=== PATIENT | male | born 1980 | race Caucasian/White ===

== ENCOUNTER 2018-04-04 22:14 | Emergency (ER) | payer MEDICAID ==
[~2018-04-04] VITALS: Ht 182.9 cm; Wt 97.5 kg
--- OUTSIDE RECORDS SUMMARY | 2018-04-04 22:56 | XMS REPORT ---
Author Author TOBI DELANEY [facility] Address [address] [place], [place] [address] Care Team Providers Care Saw Maker Name Role Phone TOBI DELANEY PCP TOBI DELANEY PreferredProvider Allergies and Adverse Reactions Name Reaction Notes NO KNOWN DRUG ALLERGIES Plan of Treatment Planned Activity Comments Planned Date Planned Time Plan/Goal CMP 06/19/2016 12:00 AM Holter monitoring 01/17/2015 12:00 AM Medications Active Name Start Date Estimated Completion Date SIG Comments Mylanta [place] 400-135 mg/5 mL oral suspension 07/28/2012 take 10 milliliters by oral route every 4-6 hours as needed for stomach not to exceed 90 mL in 24hrs Acetaminophen Pain Relief 500 mg oral tablet 07/28/2012 take 2 tablets (1, 000 mg) by oral route every 4-6 hours as needed not to exceed 8 tablets per 24hrs carbamazepine 100 mg oral tablet,chewable chew 3 tablet (300 mg) by oral route BID Colace 100 mg oral capsule take 2 capsules (200 mg) by oral route once daily at bedtime as needed Lamictal 100 mg oral tablet take 1 tablet (100 mg) by oral route 2 times per day Zyprexa 10 mg oral tablet take 1 tablet (10 mg) by oral route once daily Zoloft 100 mg oral tablet take 1.5 tablets (150 mg) by oral route once daily clonidine HCl 0.1 mg oral tablet 01/11/2015 take 1 tablet (0.1 mg) by oral route 3 times per day Lamisil 250 mg oral tablet 01/25/2017 take 1 tablet by oral route daily Penlac 8 % topical solution 02/12/2017 apply to the affected area(s) by topical route once daily preferably at bedtime or 8 hours before washing Debrox 6.5 % otic drops 04/17/2017 Instill 5 drops into right ear twice daily for 1 week per month ( - ) econazole 1 % topical cream 09/02/2017 apply to the affected and surrounding areas of skin by topical route 2 times per day lisinopril-hydrochlorothiazide 10-12.5 mg oral tablet 10/08/2017 take 1 tablet by oral route once daily ranitidine HCl 150 mg oral tablet 10/08/2017 take 1 tablet (150 mg) by oral route 2 times per day Therems oral tablet 10/08/2017 take 1 tablet by oral route daily loratadine 10 mg oral tablet 10/08/2017 take 1 tablet (10 mg) by oral route once daily folic acid 1 mg oral tablet 10/08/2017 take 1 tablet (1 mg) by oral route once daily DOK 100 mg oral capsule 10/08/2017 take 2 capsules (200 mg) by oral route once daily at bedtime as needed amoxicillin 500 mg oral capsule 10/14/2017 Take 4 capsules 1 hour before dental procedures or minor surgery for prophylaxis. Medrol (Miah) 4 mg oral tablets,dose pack 12/20/2017 12/25/2017 take as directed for 5 days Zithromax Z-Miah 250 mg oral tablet 12/20/2017 12/25/2017 take 2 tablets (500 mg) by oral route once daily for 1 day then 1 tablet (250 mg) by oral route once daily for 4 days Name Start Date Expiration Date SIG Comments Medrol (Miah) 4 mg oral tablets,dose pack 01/11/2010 take as directed Keflex 500 mg oral capsule 04/04/2010 take 1 capsule (500 mg) by oral route every 6 hours Phenergan-Codeine 6.25-10 mg/5 mL oral syrup 11/27/2010 take 5 milliliters by oral route 4 times a day Zithromax Z-Miah 250 mg oral tablet 11/27/2010 12/02/2010 take 2 tablets (500 mg) by oral route once daily for 1 day then 1 tablet (250 mg) by oral route once daily for 4 days All Day Relief 220 mg oral tablet 12/07/2010 01/06/2011 TAKE 1 TABLET BY MOUTH TWO TIMES A DAY NEEDED Lice Treatment (permethrin) 1 % topical liquid 11/06/2012 apply a sufficient amount of shampoo by topical route once allow to remain on hair for 10 minutes before rinsing off with water Zithromax Z-Miah 250 mg oral tablet 11/10/2015 2015 take 2 tablets ( 500 mg) by oral route once daily for 1 day then 1 tablet (250 mg) by oral route once daily for 4 days Medrol (Miah) 4 mg oral tablets,dose pack 11/10/2015 take as directed Diflucan 150 mg oral tablet 02/09/2016 02/10/2016 take 1 tablet by oral route once For three days Bactrim DS 800-160 mg oral tablet 05/17/2017 05/24/2017 take 1 tablet by oral route 2 times a day for 7 days Discontinued Name Start Date Discontinued Date SIG Comments Zantac 150 mg oral tablet 06/17/2012 06/24/2016 take 1 tablet (150 mg) by oral route 2 times per day Problem List Description Status Onset Mental retardation Active ADHD Active Bipolar disorder, unspecified Active Constipation Active Gastritis Active Impulse control disorder, unspecified Active Mental Retardation Active Mitral Valve Disorders Active Obsessive compulsive disorder Active Gastroesophageal Reflux Active 04/28/2014 Behavior disturbance Active 01/15/2015 Toenail fungus Active 06/24/2016 Vital Signs Date Time BP-Sys(mm[Hg] BP-Jazz(mm[Hg]) HR(bpm) RR(rpm) Temp WT HT HC BMI BSA BMI Percentile O2 Sat(%) 12/20/2017 11:11:00 AM 128 mmHg 80 mmHg 80 bpm 18 rpm 98.2 F 209 lbs 98 % 11/07/2017 11:22:00 AM 110 mmHg 80 mmHg 86 bpm 16 rpm 97.6 F 208 lbs 69 in 30.7159 kg/m 2.1432 m 98 % 07/09/2017 9:56:00 AM 122 mmHg 78 mmHg 88 bpm 18 rpm 97 F 205 lbs 70 in 29.41 kg/m2 2.14 m2 97 % 05/31/2017 9:06:00 AM 118 mmHg 78 mmHg 88 bpm 16 rpm 98.2 F 208 lbs 70 in 29.8446 kg/m 2.1586 m 98 % 05/17/2017 9:59:00 AM 128 mmHg 74 mmHg 76 bpm 16 rpm 98.2 F 206 lbs 98 % 01/24/2017 4:19:00 PM 122 mmHg 74 mmHg 86 bpm 18 rpm 98 F 215 lbs 70 in 30.849 kg/m 2.1947 m 96 % 11/01/2016 10:27:00 AM 112 mmHg 78 mmHg 94 bpm 16 rpm 99 F 218 lbs 70 in 31.28 kg/m2 2.21 m2 96 % 06/19/2016 10:16:00 AM 128 mmHg 82 mmHg 86 bpm 18 rpm 98.5 F 215 lbs 71 in 29.9861 kg/m 2.2103 m 96 % 01/10/2016 10:55:00 AM 115 mmHg 60 mmHg 68 bpm 16 rpm 98.9 F 220 lbs 70 in 31.57 kg/m2 2.22 m2 98 % 11/22/2015 10:23:00 AM 110 mmHg 62 mmHg 92 bpm 18 rpm 98.3 F 220 lbs 72 in 29.8371 kg/m 2.2515 m 98 % 04/04/2015 12:18:00 PM 120 mmHg 80 mmHg 96 bpm 18 rpm 97.8 F 222 lbs 69 in 32.78 kg/m2 2.21 m2 98 % 01/14/2015 7:58:00 AM 102 mmHg 78 mmHg 86 bpm 18 rpm 97.4 F 225.187 lbs 70 in 32.3107 kg/m 2.2461 m 98 % 07/07/2014 11:21:00 AM 136 mmHg 80 mmHg 90 bpm 20 rpm 97.9 F 213 lbs 70 in 30.56 kg/m2 2.18 m2 97 % 06/15/2014 6:13:00 AM 130 mmHg 84 mmHg 84 bpm 18 rpm 98 F 208.312 lbs 70 in 29.8894 kg/m 2.1603 m 98 % 04/27/2014 10:37:00 AM 134 mmHg 64 mmHg 88 bpm 22 rpm 97.8 F 211.5 lbs 70 in 30.35 kg/m2 2.18 m2 97 % 03/12/2013 2:30:00 PM 120 mmHg 60 mmHg 74 bpm 16 rpm 97.6 F 210 lbs 70 in 30.1316 kg/m 2.169 m 98 % 07/21/2012 1:24:00 PM 130 mmHg 70 mmHg 76 bpm 209 lbs 70 in 29.99 kg/m2 2.16 m2 06/17/2012 10:26:00 AM 130 mmHg 80 mmHg 80 bpm 205 lbs 70 in 29.4141 kg/m 2.143 m 08/29/2011 9:26:00 AM 114 mmHg 80 mmHg 85 bpm 208 lbs 70 in 29.84 kg/m2 2.16 m2 97 % 11/23/2010 11:36:00 AM 124 mmHg 82 mmHg 80 bpm 217 lbs 04/11/2010 9:55:00 AM 120 mmHg 76 mmHg 76 bpm 200 lbs 04/04/2010 9:38:00 AM 80 bpm 209 lbs 03/15/2010 9:51:00 AM 122 mmHg 80 mmHg 76 bpm 200 lbs 02/15/2010 2:48:00 PM 114 mmHg 80 mmHg 76 bpm 98.8 F 198 lbs 01/11/2010 11:24:00 AM 110 mmHg 80 mmHg 80 bpm 98.6 F 192 lbs 97 % Social History Name Description Comments Tobacco Never smoker denies alcohol use History of Procedures Date Ordered Description Order Status 08/29/2011 12:00 AM TB INTRADERMAL TEST Reviewed Results Summary Not available. History Of Immunizations Name Date Admin Mfg Name Mfg Code Trade Name Lot# Route Inj Vis Given Vis Pub CVX Influenza 10/05/2014 Not Entered NE Not Entered Not Entered Not Entered 12/02/2017 12/02/2017 141 History of Past Illness Name Date of Onset Comments Nasopharyngitis, Acute (Common Cold) Jan 11 2010 11:27AM Eustachian Tube Dysfunction Jan 11 2010 11:27AM Cough Jan 11 2010 11:27AM Bronchitis, Acute Jan 11 2010 11:27AM Pityriasis Rosea Feb 15 2010 2:49PM Pityriasis Rosea Mar 15 2010 9:52AM Ingrown Nail Apr 04 2010 9:39AM Skin And Subcutaneous Tissue Disorder Apr 04 2010 9:39AM Ingrown Nail Apr 11 2010 9:57AM Mental retardation Gastritis Bipolar disorder, unspecified Constipation Mitral Valve Disorders Mental Retardation ADHD Impulse control disorder, unspecified Obsessive compulsive disorder Gastroesophageal Reflux 04/28/2014 Behavior disturbance 01/15/2015 Nasopharyngitis, Acute (Common Cold) Nov 23 2010 11:36AM Cough Nov 23 2010 11:36AM Toenail fungus 06/24/2016 General Medical Exam, Adult Aug 29 2011 9:24AM Mental Retardation Aug 29 2011 9:24AM Gastroesophageal Reflux Jun 17 2012 10:29AM Warts (viral; digitate;filiform;infectious) Jun 17 2012 10:29AM Gastroesophageal Reflux Jul 21 2012 1:27PM Warts (viral; digitate;filiform;infectious) Jul 21 2012 1:27PM Mental Retardation Mar 27 2013 12:43PM Bipolar disorder, unspecified Mar 27 2013 12:43PM Impulse control disorder, unspecified Mar 27 2013 12:43PM Obsessive compulsive disorder Mar 27 2013 12:43PM Gastroesophageal Reflux Apr 27 2014 10:37AM Mental Retardation Apr 27 2014 10:37AM ADHD Apr 27 2014 10:37AM Bipolar disorder, unspecified Apr 27 2014 10:37AM Impulse control disorder, unspecified Apr 27 2014 10:37AM Obsessive compulsive disorder Apr 27 2014 10:37AM Constipation Apr 27 2014 10:37AM Mitral Valve Disorders Apr 27 2014 10:37AM Shoulder contusion, right, sequela Jun 14 2014 2:03PM Pain in shoulder region, right Jul 07 2014 11:20AM Behavior disturbance Jan 14 2015 7:59AM Mental retardation Jan 14 2015 7:59AM Bipolar disorder, unspecified Jan 14 2015 7:59AM Impulse control disorder, unspecified Jan 14 2015 7:59AM Obsessive compulsive disorder Jan 14 2015 7:59AM Dizziness Jan 17 2015 9:20AM Behavior disturbance Apr 04 2015 12:19PM Gastroesophageal Reflux Apr 04 2015 12:19PM Mental retardation Apr 04 2015 12:19PM ADHD Apr 04 2015 12:19PM Bipolar disorder, unspecified Apr 04 2015 12:19PM Impulse control disorder, unspecified Apr 04 2015 12:19PM Obsessive compulsive disorder Apr 04 2015 12:19PM Olecranon bursitis, left Nov 22 2015 10:23AM Mild Acute Sprain/Strain Improving Jan 10 2016 10:56AM Acute left ankle pain Jan 10 2016 10:56AM Long-term use of high-risk medication Jun 19 2016 3:54PM Gastroesophageal reflux disease without esophagitis Jun 19 2016 10:17AM Behavior disturbance Jun 19 2016 10:17AM Mental retardation Jun 19 2016 10:17AM Impulse control disorder, unspecified Jun 19 2016 10:17AM Obsessive compulsive disorder Jun 19 2016 10:17AM Bipolar affective disorder Jun 19 2016 10:17AM Toenail fungus Jun 19 2016 10:17AM Cough Nov 01 2016 10:28AM Mild Acute Post-nasal drainage Nov 01 2016 10:28AM Upper respiratory tract infection, unspecified type Nov 01 2016 10:28AM Nasal congestion Nov 01 2016 10:28AM Tinea cruris Jan 24 2017 4:19PM Cellulitis of finger of right hand May 17 2017 9:59AM Acute midline low back pain without sciatica May 31 2017 9:08AM Muscle spasm of back May 31 2017 9:08AM Encounter for routine adult health examination without abnormal findings Jul 09 2017 10:09AM Cough Nov 07 2017 11:22AM Acute pharyngitis, unspecified etiology Nov 07 2017 11:22AM Purulent postnasal drainage Nov 07 2017 11:22AM Sinus pressure Nov 07 2017 11:22AM Cough Dec 20 2017 11:11AM Purulent postnasal drainage Dec 20 2017 11:11AM Chest congestion Dec 20 2017 11:11AM Upper respiratory tract infection, unspecified type Dec 20 2017 11:11AM Payers Insurance Name Company Name Plan Name Plan Number Policy Number Policy Group Number Start Date [facility] [id number] N/A [place] Medical Assistance [facility] Medical Assistance Pro [id number] N/A History of Encounters Visit Date Visit Type Provider 12/20/2017 Office visit TOBI HENDRICKS 11/07/2017 Office visit TOBI HENDRICKS 07/09/2017 Office visit TOBI HENDRICKS 05/17/2017 Office visit TOBI HENDRICKS 05/07/2017 Office visit TOBI HENDRICKS 01/24/2017 Office visit TOBI HENDRICKS 11/01/2016 Office visit TOBI HENDRICKS 06/19/2016 Office visit TOBI HENDRICKS 01/10/2016 Office visit TOBI HENDRICKS 11/22/2015 Office visit TOBI HENDRICKS 04/04/2015 Office visit TOBI HENDRICKS 01/13/2015 Office visit TOBI HENDRICKS 07/07/2014 Office visit TOBI HENDRICKS 06/14/2014 Office visit TOBI HENDRICKS 04/27/2014 Office visit TOBI HENDRICKS 03/12/2013 Office visit TOBI HENDRICKS 07/21/2012 Office visit TOBI HENDRICKS 06/17/2012 Office visit TOBI HENDRICKS 08/29/2011 Office visit Tobi Delaney PA-C 11/23/2010 Office visit Tobi Delaney PA-C 04/11/2010 Office visit Tobi Delaney PA-C 04/04/2010 Office visit Tobi Delaney PA-C 03/15/2010 Office visit Tobi Delaney PA-C 02/15/2010 Office visit Tobi Delaney PA-C 01/11/2010 Office visit Tobi Delaney PA-C 10/04/2009 Office visit Tobi Delaney PA-C 09/01/2009 Office visit Tobi Delaney PA-C
--- OUTSIDE RECORDS SUMMARY | 2018-04-04 22:56 | XMS REPORT ---
Author TOBI Davis [facility] Address [address] [place], [place] [address] Care Team Providers Care Environment Artist Name Role Phone TOBI GRECO PCP Unavailable TOBI GRECO PreferredProvider Unavailable Allergies and Adverse Reactions Name Reaction Notes NO KNOWN DRUG ALLERGIES Plan of Treatment Planned Activity Comments Planned Date Planned Time Plan/Goal CMP 06/19/2016 12:00 AM Holter monitoring 01/17/2015 12:00 AM Medications Active Name Start Date Estimated Completion Date SIG Comments Mylanta [place] 400-135 mg/5 mL oral suspension 07/28/2012 take [...] by oral route 3 times per day DOK 100 mg oral capsule 10/19/2016 take 2 capsules (200 mg) by oral route once daily at bedtime as needed folic acid 1 mg oral tablet 10/19/2016 take 1 tablet (1 mg) by oral route once daily loratadine 10 mg oral tablet 10/19/2016 take 1 tablet (10 mg) by oral route once daily Therems oral tablet 10/19/2016 take 1 tablet by oral route daily lisinopril-hydrochlorothiazide 10-12.5 mg oral tablet 10/19/2016 take 1 tablet by oral route once daily ranitidine HCl 150 mg oral tablet 10/24/2016 take 1 tablet (150 mg) by oral route 2 times per day econazole 1 % topical cream 12/19/2016 apply to the affected and surrounding areas of skin by topical route 2 times per day Lamisil 250 mg oral tablet 01/25/2017 take 1 tablet by oral route daily Penlac 8 % topical solution 02/12/2017 apply to the affected area(s) by topical route once daily preferably at bedtime or 8 hours before washing Debrox 6.5 % otic drops 04/17/2017 Instill 5 drops into right ear twice daily for 1 week per month ( - ) Bactrim DS 800-160 mg oral tablet 05/17/2017 05/24/2017 take 1 tablet by oral route 2 times a day for 7 days Name Start Date Expiration Date SIG [...] by oral route once For three days Zithromax Z-Imah 250 mg oral tablet 11/01/2016 11/06/2016 take 2 tablets (500 mg) by oral route once daily for 1 day then 1 tablet (250 mg) by oral route once daily for 4 days Medrol (Miah) 4 mg oral tablets,dose pack 11/01/2016 11/06/2016 take as directed for 5 days Discontinued Name Start Date Discontinued Date [...] HC BMI BSA BMI Percentile O2 Sat(%) 05/17/2017 9:59:00 AM 128 mmHg 74 mmHg [...] AM TB INTRADERMAL TEST Reviewed Results Summary Date and Description Results 08/16/2010 6:05 AM FOLATE 12.0 ng/mL History Of Immunizations Name Date Admin Mfg Name Mfg Code Trade Name Lot# Route Inj Vis Given Vis Pub CVX Influenza 10/05/2014 Not Entered NE Not Entered Not Entered Not Entered 12/02/2016 12/02/2016 141 History of Past Illness Name Date [...] of right hand May 17 2017 9:59AM Payers Insurance Name Company Name Plan Name Plan Number Policy Number Policy Group Number Start Date [facility] [id number] N/A [place] Medical Assistance Program [place] [facility] [place] Prog [id number] N/A History of Encounters Visit Date Visit Type Provider 05/17/2017 Office visit TOBI HENDRICKS 05/07/2017 Office visit TOBI HENDRICKS 01/24/2017 Office visit TOBI HENDRICKS 11/01/2016 Office visit TOBI HENDRICKS 06/19/2016 Office visit TOBI HENDRICKS 01/10/2016 Office visit TOBI HENDRICKS 11/22/2015 Office visit TOBI HENDRICKS 04/04/2015 Office visit TOBI HENDRICKS 01/13/2015 Office visit TOBI HENDRICKS 07/07/2014 Office visit TOBI GRECO PA 06/14/2014 Office visit TOBI GRECO PA 04/27/2014 Office visit TOBI GRECO PA 03/12/2013 Office visit TOBI GRECO PA 07/21/2012 Office visit TOBI GRECO PA 06/17/2012 Office visit TOBI GRECO PA 08/29/2011 Office visit Tobi Greco PA-C 11/23/2010 Office visit Tobi Greco PA-C 04/11/2010 Office visit Tobi Greco PA-C 04/04/2010 Office visit Tobi Greco PA-C 03/15/2010 Office visit Tobi Greco PA-C 02/15/2010 Office visit Tobi Greco PA-C 01/11/2010 Office visit Tobi Greco PA-C 10/04/2009 Office visit Tobi Greco PA-C 09/01/2009 Office visit Tobi Greco PA-C
--- OUTSIDE RECORDS SUMMARY | 2018-04-04 22:57 | XMS REPORT ---
Author TOBI Davis [facility] Address [address] [place], [place] [id number] Care Team Providers Care Mobility Manager Name Role Phone TOBI GRECO PCP Unavailable Allergies and Adverse Reactions Name Reaction Notes NO KNOWN DRUG ALLERGIES Plan of Treatment Planned Activity Comments Planned Date Planned Time Plan/Goal ECG MONIT/REPRT UP TO 48 HRS 01/17/2015 12:00 AM Medications Active Name Start Date Estimated Completion Date SIG Comments Zantac 150 mg oral tablet 06/17/2012 take 1 tablet (150 mg) by oral route 2 times per day Mylanta [place] 400-135 mg/5 mL oral suspension 07/28/2012 take 10 milliliters by oral route every 4-6 hours as needed for stomach not to exceed 90 mL in 24hrs Acetaminophen Pain Relief 500 mg oral tablet 07/28/2012 take 2 tablets (1, 000 mg) by oral route every 4-6 hours as needed not to exceed 8 tablets per 24hrs Lice Treatment (permethrin) 1 % topical liquid 11/06/2012 apply a sufficient amount of shampoo by topical route once allow to remain on hair for 10 minutes before rinsing off with water carbamazepine 100 mg oral tablet,chewable chew 3 tablet (300 mg) by oral route BID Colace Oral Colace 100 mg oral capsule take 2 capsules (200 mg) by oral route once daily at bedtime as needed folic acid 1 mg oral tablet take 1 tablet (1 mg) by oral route once daily Lamictal 100 mg oral tablet take 1 tablet (100 mg) by oral route 2 times per day loratadine 10 mg oral tablet take 1 tablet (10 mg) by oral route once daily Zyprexa 10 mg oral tablet take 1 tablet (10 mg) by oral route once daily Zoloft 100 mg oral tablet take 1.5 tablets (150 mg) by oral route once daily clonidine HCl 0.1 mg oral tablet 01/11/2015 take 1 tablet (0.1 mg) by oral route 3 times per day Medrol (Miah) 4 mg oral tablets,dose pack 11/10/2015 take as directed Name Start Date Expiration Date SIG Comments [...] BY MOUTH TWO TIMES A DAY NEEDED Zithromax Z-Miah 250 mg oral tablet 11/10/2015 2015 take 2 tablets ( 500 mg) by oral route once daily for 1 day then 1 tablet (250 mg) by oral route once daily for 4 days Problem List Description Status Onset Mental retardation Active ADHD Active Bipolar disorder, unspecified Active Constipation Active Gastritis Active Impulse control disorder, unspecified Active Mental Retardation Active Mitral Valve Disorders Active Obsessive compulsive disorder Active Gastroesophageal Reflux Active 04/28/2014 Behavior disturbance Active 01/15/2015 Vital Signs Date Time BP-Sys(mm[Hg] BP-Jazz(mm[Hg]) HR(bpm) RR(rpm) Temp WT HT HC BMI BSA BMI Percentile O2 Sat(%) 01/10/2016 10:55:00 AM 115 mmHg 60 mmHg [...] AM TB INTRADERMAL TEST Reviewed Results Summary Data and Description Results 08/16/2010 6:05 AM FOLATE 12.0 ng/mL History Of Immunizations Name Date Admin Mfg Name Mfg Code Trade Name Lot# Route Inj Vis Given Vis Pub CVX Influenza 10/05/2014 Not Entered NE Not Entered Not Entered Not Entered 12/02/2015 12/02/2015 141 History of Past Illness Name Date [...] 2010 11:36AM Cough Nov 23 2010 11:36AM General Medical Exam, Adult Aug 29 2011 [...] left ankle pain Jan 10 2016 10:56AM Payers Insurance Name Company Name Plan Name Plan Number Policy Number Policy Group Number Start Date [facility] [id number] N/A [place] Medical Assistance [facility] Medical Assistance Pro [id number] N/A History of Encounters Visit Date Visit Type Provider 01/10/2016 Office visit TOBI HENDRICKS 11/22/2015 Office visit TOBI HENDRICKS 04/04/2015 Office visit TOBI HENDRICKS 01/13/2015 Office visit TOBI HENDRICKS 07/07/2014 Office visit TOBI HENDRICKS 06/14/2014 Office visit TOBI HENDRICKS 04/27/2014 Office visit TOBI HENDRICKS 03/12/2013 Office visit TOBI HENDRICKS 07/21/2012 Office visit TOBI HENDRICKS 06/17/2012 Office visit TOBI HENDRICKS 08/29/2011 Office visit Tobi Greco PA-C 11/23/2010 Office visit Tobi HENDRICKS-C 04/11/2010 Office visit Tobi HENDRICKS-C 04/04/2010 Office visit Tobi HENDRICKS-C 03/15/2010 Office visit Tobi HENDRICKS-C 02/15/2010 Office visit Tobi HENDRICKS-C 01/11/2010 Office visit Tobi HENDRICKS-C 10/04/2009 Office visit Tobi HENDRICKS-C 09/01/2009 Office visit Tobi Greco PA-C
--- OUTSIDE RECORDS SUMMARY | 2018-04-04 22:57 | XMS REPORT ---
Author Author TOBI DELANEY [facility] Address [address] [place], [place] [address] Care Team Providers Care Business Integration Analyst Name Role Phone TOBI DELANEY PCP Unavailable Allergies and Adverse Reactions Name Reaction Notes NO KNOWN DRUG ALLERGIES Plan of Treatment Planned Activity Comments Planned Date Planned Time Plan/Goal CMP 06/19/2016 12:00 AM Holter monitoring 01/17/2015 12:00 AM Medications Active Name Start Date Estimated Completion Date SIG Comments Mylanta [place] 400-135 mg/5 mL oral suspension 07/28/2012 take [...] take 1 tablet by oral route daily Name Start Date Expiration Date SIG Comments [...] oral route once For three days Zithromax Z-Miah 250 mg oral tablet 11/01/2016 11/06/2016 take [...] HC BMI BSA BMI Percentile O2 Sat(%) 01/24/2017 4:19:00 PM 122 mmHg 74 mmHg 86 bpm 18 rpm 98 F 215 lbs 70 in 30.85 kg/m2 2.19 m2 96 % 11/01/2016 10:27:00 AM 112 mmHg 78 mmHg 94 bpm 16 rpm 99 F 218 lbs 70 in 31.2794 kg/m 2.2099 m 96 % 06/19/2016 10:16:00 AM 128 mmHg 82 mmHg 86 bpm 18 rpm 98.5 F 215 lbs 71 in 29.99 kg/m2 2.21 m2 96 % 01/10/2016 10:55:00 AM 115 mmHg 60 mmHg 68 bpm 16 rpm 98.9 F 220 lbs 70 in 31.5664 kg/m 2.22 m 98 % 11/22/2015 10:23:00 AM 110 mmHg 62 mmHg 92 bpm 18 rpm 98.3 F 220 lbs 72 in 29.84 kg/m2 2.25 m2 98 % 04/04/2015 12:18:00 PM 120 mmHg 80 mmHg 96 bpm 18 rpm 97.8 F 222 lbs 69 in 32.7833 kg/m 2.2141 m 98 % 01/14/2015 7:58:00 AM 102 mmHg 78 mmHg 86 bpm 18 rpm 97.4 F 225.187 lbs 70 in 32.31 kg/m2 2.25 m2 98 % 07/07/2014 11:21:00 AM 136 mmHg 80 mmHg 90 bpm 20 rpm 97.9 F 213 lbs 70 in 30.562 kg/m 2.1844 m 97 % 06/15/2014 6:13:00 AM 130 mmHg 84 mmHg 84 bpm 18 rpm 98 F 208.312 lbs 70 in 29.89 kg/m2 2.16 m2 98 % 04/27/2014 10:37:00 AM 134 mmHg 64 mmHg 88 bpm 22 rpm 97.8 F 211.5 lbs 70 in 30.3468 kg/m 2.1767 m 97 % 03/12/2013 2:30:00 PM 120 mmHg 60 mmHg 74 bpm 16 rpm 97.6 F 210 lbs 70 in 30.13 kg/m2 2.17 m2 98 % 07/21/2012 1:24:00 PM 130 mmHg 70 mmHg 76 bpm 209 lbs 70 in 29.9881 kg/m 2.1638 m 06/17/2012 10:26:00 AM 130 mmHg 80 mmHg 80 bpm 205 lbs 70 in 29.41 kg/m2 2.14 m2 08/29/2011 9:26:00 AM 114 mmHg 80 mmHg 85 bpm 208 lbs 70 in 29.8446 kg/m 2.1586 m 97 % 11/23/2010 11:36:00 AM 124 mmHg [...] 10:28AM Tinea cruris Jan 24 2017 4:19PM Payers Insurance Name Company Name Plan Name Plan Number Policy Number Policy Group Number Start Date [facility] [id number] N/A [place] Medical Assistance [facility] Medical Assistance Pro [id number] N/A History of Encounters Visit Date Visit Type Provider 01/24/2017 Office visit TOBI HENDRICKS 11/01/2016 Office visit TOBI HENDRICKS 06/19/2016 Office visit TOBI HENDRICKS 01/10/2016 Office visit TOBI HENDRICKS 11/22/2015 Office visit TOBI HENDRICKS 04/04/2015 Office visit TOBI HENDRICKS 01/13/2015 Office visit TOBI HENDRICKS 07/07/2014 Office visit TBOI HENDRICKS 06/14/2014 Office visit TOBI HENDRICKS 04/27/2014 Office visit TOBI HENDRICKS 03/12/2013 Office visit TOBI HENDRICKS 07/21/2012 Office visit TOBI HENDRICKS 06/17/2012 Office visit TOBI HENDRICKS 08/29/2011 Office visit Tobi HENDRICKS-C 11/23/2010 Office visit Tobi HENDRICKS-C 04/11/2010 Office visit Tobi HENDRICKS-C 04/04/2010 Office visit Tobi HENDRICKS-C 03/15/2010 Office visit Tobi HENDRICKS-C 02/15/2010 Office visit Toib HENDRICKS-C 01/11/2010 Office visit Tobi HENDRICKS-C 10/04/2009 Office visit Tobi Delaney PA-C 09/01/2009 Office visit Tobi Delaney PA-C
--- OUTSIDE RECORDS SUMMARY | 2018-04-04 22:57 | XMS REPORT ---
Author TOBI Davis [facility] Address [address] [place], [place] [id number] Care Team Providers Care Fiscal Agent Name Role Phone TOBI GRECO PCP Unavailable Allergies and Adverse Reactions Name Reaction Notes NO KNOWN DRUG ALLERGIES Plan of Treatment Planned Activity Comments Planned Date Planned Time Plan/Goal COMPREHEN METABOLIC PANEL 06/19/2016 12:00 AM ECG MONIT/REPRT UP TO 48 HRS 01/17/2015 12:00 AM Medications Active Name Start Date Estimated Completion Date SIG Comments Zantac 150 mg oral tablet 06/17/2012 take 1 tablet (150 mg) by oral route 2 times per day Mylanta [place] 400-135 mg/5 mL oral suspension 07/28/2012 take [...] oral tablets,dose pack 11/10/2015 take as directed econazole 1 % topical cream 05/03/2016 apply to the affected and surrounding areas of skin by topical route 2 times per day Lamisil 250 mg oral tablet 06/19/2016 Take one tablet (250 mg) BID x 1 week. Stop Medication for 3 weeks and then repeat. Name Start Date Expiration Date SIG Comments [...] oral route once daily for 4 days Diflucan 150 mg oral tablet 02/09/2016 02/10/2016 take 1 tablet by oral route once For three days Problem List Description Status Onset Mental retardation Active ADHD Active Bipolar disorder, unspecified Active Constipation Active Gastritis Active Impulse control disorder, unspecified Active Mental Retardation Active Mitral Valve Disorders Active Obsessive compulsive disorder Active Gastroesophageal Reflux Active 04/28/2014 Behavior disturbance Active 01/15/2015 Vital Signs Date Time BP-Sys(mm[Hg] BP-Jazz(mm[Hg]) HR(bpm) RR(rpm) Temp WT HT HC BMI BSA BMI Percentile O2 Sat(%) 06/19/2016 10:16:00 AM 128 mmHg 82 mmHg [...] of high-risk medication Jun 19 2016 3:54PM Payers Insurance Name Company Name Plan Name Plan Number Policy Number Policy Group Number Start Date [facility] [id number] N/A [place] Medical Assistance [place] Medical Assistance Pro [id number] N/A History of Encounters Visit Date Visit Type Provider 06/19/2016 Office visit TOBI HENDRICKS 01/10/2016 Office [...] Tobi Greco PA-C 04/11/2010 Office visit Tobi GUERRAC 04/04/2010 Office visit Tobi HENDRICKS-C 03/15/2010 Office visit Tobi GUERRAC 02/15/2010 Office visit Tobi GUERRAC 01/11/2010 Office visit Tobi HENDRICKS-C 10/04/2009 Office visit Tobi HENDRICKS-C 09/01/2009 Office visit Tobi Greco PA-C
--- OUTSIDE RECORDS SUMMARY | 2018-04-04 22:58 | XMS REPORT ---
Author Author [facility] Organization [facility] Address [address] [place], [place] [phone] Care Team Providers Care Commercial Banker Name Role Phone PCP Unavailable Allergies and Adverse Reactions Name Reaction Notes NO KNOWN DRUG ALLERGIES Plan of Treatment Not available. Medications Active Name Start Date Estimated Completion Date SIG Comments Zantac Oral Tablet 150 mg 06/17/2012 take 1 tablet (150 mg) by oral route 2 times per day Mylanta [place] Oral Suspension 400-135 mg/5 mL 07/28/2012 take 10 milliliters by oral route every 4-6 hours as needed for stomach not to exceed 90 mL in 24hrs Acetaminophen Pain Relief Oral tablet 500 mg 07/28/2012 take 2 tablets (1, 000 mg) by oral route every 4-6 hours as needed not to exceed 8 tablets per 24hrs Permethrin Lice Treatment Topical Liquid 1 % 11/06/2012 apply a sufficient amount of shampoo by topical route once allow to remain on hair for 10 minutes before rinsing off with water carbamazepine Oral tablet, chewable 100 mg chew 3 tablet (300 mg) by oral route BID Colace Oral Colace Oral capsule 100 mg take 2 capsules (200 mg) by oral route once daily at bedtime as needed folic acid Oral tablet 1 mg take 1 tablet (1 mg) by oral route once daily Lamictal Oral tablet 100 mg take 1 tablet (100 mg) by oral route 2 times per day loratadine Oral tablet 10 mg take 1 tablet (10 mg) by oral route once daily Zyprexa Oral tablet 10 mg take 1 tablet (10 mg) by oral route once daily Zoloft Oral tablet 100 mg take 1.5 tablets (150 mg) by oral route once daily Medrol (Miah) oral tablets,dose pack 4 mg 07/22/2014 take as directed clonidine HCl oral tablet 0.1 mg 01/11/2015 take 1 tablet (0.1 mg) by oral route 3 times per day Name Start Date Expiration Date SIG Comments Medrol (Miah) Oral Tablets, Dose Pack 4 mg 01/11/2010 take as directed Keflex Oral Capsule 500 mg 04/04/2010 take 1 capsule (500 mg) by oral route every 6 hours Phenergan-Codeine Oral Syrup 6.25-10 mg/5 mL 11/27/2010 take 5 milliliters by oral route 4 times a day Zithromax Z-Miah Oral Tablet 250 mg 11/27/2010 12/02/2010 take 2 tablets (500 mg) by oral route once daily for 1 day then 1 tablet (250 mg) by oral route once daily for 4 days All Day Relief Oral Tablet 220 mg 12/07/2010 01/06/2011 TAKE 1 TABLET BY MOUTH TWO TIMES A DAY NEEDED Zithromax Z-Miah oral tablet 250 mg 11/09/2014 11/14/2014 take 2 tablets (500 mg) by oral [...] HC BMI BSA BMI Percentile O2 Sat(%) 04/04/2015 12:18:00 PM 120 mmHg 80 mmHg [...] NE Not Entered Not Entered Not Entered 12/02/2014 12/02/2014 141 History of Past Illness Name Date [...] right Jul 07 2014 11:20AM Behavior disturbance b 2014 7:59AM Mental retardation Jan 14 2015 7:59AM Bipolar disorder, unspecified b 2014 7:59AM Impulse control disorder, unspecified b 2014 7:59AM Obsessive compulsive disorder Jan 14 2015 7:59AM Dizziness b 2014 9:20AM Behavior disturbance Apr 04 2015 12:19PM Gastroesophageal Reflux Apr 04 2015 12:19PM Mental retardation Apr 04 2015 12:19PM ADHD Apr 04 2015 12:19PM Bipolar disorder, unspecified Apr 04 2015 12:19PM Impulse control disorder, unspecified Apr 04 2015 12:19PM Obsessive compulsive disorder Apr 04 2015 12:19PM Payers Insurance Name Company Name Plan Name Plan Number Policy Number Policy Group Number Start Date [facility] [id number] N/A [place] Medical [place] Program [place] Pro [id number] N/A History of Encounters Visit Date Visit Type Provider 04/04/2015 Office visit TOBI GRECO PA 01/13/2015 Office visit TOBI GRECO PA 07/07/2014 Office visit TOBI GRECO PA 06/14/2014 [...]
--- OUTSIDE RECORDS SUMMARY | 2018-04-04 22:59 | XMS REPORT ---
Author TOBI Davis [facility] Address [address] [place], [place] [id number] Care Team Providers Care University Administrator Name Role Phone TOBI GRECO PCP Unavailable Allergies and Adverse Reactions Name Reaction Notes NO KNOWN DRUG ALLERGIES Plan of Treatment Planned Activity Comments Planned Date Planned Time Plan/Goal CMP 06/19/2016 12:00 AM Holter monitoring 01/17/2015 12:00 AM Medications Active Name Start Date Estimated Completion Date SIG Comments Mylanta [place] 400-135 mg/5 mL oral suspension 07/28/2012 take [...] by oral route 3 times per day econazole 1 % topical cream 05/03/2016 apply to the affected and surrounding areas of skin by topical route 2 times per day Lamisil 250 mg oral tablet 09/04/2016 take 1 tablet by oral route daily DOK 100 mg oral capsule 10/19/2016 take [...] by oral route 2 times per day Zithromax Z-Miah 250 mg oral tablet 11/01/2016 11/06/2016 take 2 tablets (500 mg) by oral route once daily for 1 day then 1 tablet (250 mg) by oral route once daily for 4 days Medrol (Miah) 4 mg oral tablets,dose pack 11/01/2016 11/06/2016 take as directed for 5 days Name Start Date Expiration Date SIG [...] by oral route once For three days Discontinued Name Start Date Discontinued Date [...] HC BMI BSA BMI Percentile O2 Sat(%) 11/01/2016 10:27:00 AM 112 mmHg 78 mmHg [...] 10:28AM Nasal congestion Nov 01 2016 10:28AM Payers Insurance Name Company Name Plan Name Plan Number Policy Number Policy Group Number Start Date [facility] [id number] N/A [place] Medical Assistance [facility] Medical Assistance Pro [id number] N/A History of Encounters Visit Date Visit Type Provider 11/01/2016 Office visit TOBI HENDRICKS 06/19/2016 Office [...] visit Tobi HENDRICKS-C 03/15/2010 Office visit Tobi Greco PA-C 02/15/2010 Office visit Tobi HENDRICKS-C 01/11/2010 Office visit Tobi Greco PA-C 10/04/2009 Office visit Tobi Greco PA-C 09/01/2009 Office visit Tobi HENDRICKS-C
--- OUTSIDE RECORDS SUMMARY | 2018-04-04 22:59 | XMS REPORT ---
Author TOBI Davis [facility] Address [address] [place], [place] [id number] Care Team Providers Care Garment Sewing Machine Operator Name Role Phone TOBI GRECO PCP Unavailable TOBI GRECO PreferredProvider Unavailable Allergies and Adverse Reactions Name Reaction Notes NO KNOWN DRUG ALLERGIES Plan of Treatment Planned Activity Comments Planned Date Planned Time Plan/Goal CMP 06/19/2016 12:00 AM Holter monitoring 01/17/2015 12:00 AM Medications Active Name Start Date Estimated Completion Date SIG Comments Mylanta [place] 400-135 mg/5 mL oral suspension 07/28/2012 take [...] 1 week per month ( - ) Name Start Date Expiration Date SIG Comments [...] 11/06/2016 take as directed for 5 days Bactrim DS 800-160 mg oral tablet [...] HC BMI BSA BMI Percentile O2 Sat(%) 05/31/2017 9:06:00 AM 118 mmHg 78 mmHg 88 bpm 16 rpm 98.2 F 208 lbs 70 in 29.84 kg/m2 2.16 m2 98 % 05/17/2017 9:59:00 AM 128 mmHg [...] spasm of back May 31 2017 9:08AM Payers Insurance Name Company Name Plan Name Plan Number Policy Number Policy Group Number Start Date [facility] [id number] N/A [place] Medical Assistance Program [place] Pro [id number] N/A History of Encounters Visit Date Visit Type Provider 05/17/2017 Office visit TOBI HENDRICKS 05/07/2017 Office visit TOBI HENDRICKS 01/24/2017 Office visit TOBI HENDRICKS 11/01/2016 Office visit TOBI HENDRICKS 06/19/2016 Office visit TOBI GRECO PA 01/10/2016 Office visit TOBI GRECO PA 11/22/2015 Office visit TOBI GRECO PA 04/04/2015 Office visit TOBI GRECO PA 01/13/2015 [...]
--- OUTSIDE RECORDS SUMMARY | 2018-04-04 23:00 | XMS REPORT ---
Author TOBI Davis [facility] Address [address] [place], [place] [phone] Care Team Providers Care Drying Tunnel Operator Name Role Phone TOBI GRECO PCP Unavailable TOBI GRECO PreferredProvider Unavailable Allergies and Adverse Reactions Name Reaction Notes NO KNOWN DRUG ALLERGIES Plan of Treatment Planned Activity Comments Planned Date Planned Time Plan/Goal CMP 06/19/2016 12:00 AM Holter monitoring 01/17/2015 12:00 AM Medications Active Name Start Date Estimated Completion Date SIG Comments Mylanta [place] 400-135 mg/5 mL oral suspension 07/28/2012 take [...] Policy Number Policy Group Number Start Date [facility] [id number] N/A [place] Medical Assistance Program [place] Prog [id number] N/A History of Encounters Visit Date Visit [...]
--- OUTSIDE RECORDS SUMMARY | 2018-04-04 23:00 | XMS REPORT ---
Author Author [facility] Organization [facility] Address [address] [place], [place] [phone] Care Team Providers Care Corporate Administrator Name Role Phone PCP Unavailable Allergies and Adverse Reactions Name Reaction Notes NO KNOWN DRUG ALLERGIES Plan of Treatment Not available. Medications Active Name Start Date Estimated Completion Date SIG Comments Zantac Oral Tablet 150 mg 06/17/2012 take 1 tablet (150 mg) by oral route 2 times per day Mylanta [place] Oral Suspension 400-135 mg/5 mL 07/28/2012 take [...] Policy Number Policy Group Number Start Date [facility] - [facility] [id number] N/A [place] Medical Assistance Program [place] Medical [place] Pro [id number] N/A History of Encounters Visit Date Visit Type Provider 04/04/2015 Office visit TOBI GRECO PA 01/13/2015 Office visit TOBI GRECO PA 07/07/2014 Office visit TOBI GRECO PA 06/14/2014 Office visit TOBI GRECO PA 04/27/2014 Office visit TOBI GRECO PA 03/12/2013 Office visit TOBI GRECO PA 07/21/2012 Office visit TOBI GRECO PA 06/17/2012 Office visit TOBI GRECO PA 08/29/2011 Office visit Tobi Greoc PA-C 11/23/2010 Office visit Tobi Greco PA-C 04/11/2010 Office visit Tobi Greco PA-C 04/04/2010 Office visit Tobi Greco PA-C 03/15/2010 Office visit Tobi Greco PA-C 02/15/2010 Office visit Tobi Greco PA-C 01/11/2010 Office visit Tobi Greco PA-C 10/04/2009 Office visit Tobi Greco PA-C 09/01/2009 Office visit Tobi Greco PA-C
--- OUTSIDE RECORDS SUMMARY | 2018-04-04 23:01 | XMS REPORT ---
Author Author TOBI DELANEY [facility] Address [address] [place], [place] [phone] Care Team Providers Care Assembler Utility Buildings Name Role Phone TOBI DELANEY PCP Unavailable Allergies and Adverse Reactions Name Reaction Notes NO KNOWN DRUG ALLERGIES Plan of Treatment Planned Activity Comments Planned Date Planned Time Plan/Goal COMPREHEN METABOLIC PANEL 06/19/2016 12:00 AM ECG MONIT/REPRT UP TO 48 HRS 01/17/2015 12:00 AM Medications Active Name Start Date Estimated Completion Date SIG Comments Mylanta [place] 400-135 mg/5 mL oral suspension 07/28/2012 take [...] day Lamisil 250 mg oral tablet 06/19/2016 take 1 tablet by oral route daily [...] 10:17AM Toenail fungus Jun 19 2016 10:17AM Payers Insurance Name Company Name Plan Name Plan Number Policy Number Policy Group Number Start Date [facility] [id number] N/A [place] Medical Assistance Program [place] Pro [id number] N/A History of Encounters Visit Date Visit Type Provider 06/19/2016 Office visit TOBI HENDRICKS 01/10/2016 Office visit TOIB HENDRICKS 11/22/2015 Office visit TOBI HENDRICKS 04/04/2015 Office visit TOBI HENDRICKS 01/13/2015 Office visit TOBI HENDRICKS 07/07/2014 Office visit TOBI HENDRICKS 06/14/2014 Office visit TOBI HENDRICKS 04/27/2014 Office visit TOBI DELANEY PA 03/12/2013 Office visit TOBI DELANEY PA 07/21/2012 Office visit TOBI DELANEY PA 06/17/2012 Office visit TOBI DELANEY PA 08/29/2011 Office visit Tobi Delaney PA-C 11/23/2010 Office visit Tobi Delaney PA-C 04/11/2010 Office visit Tobi Delaney PA-C 04/04/2010 Office visit Tobi Delaney PA-C 03/15/2010 Office visit Tobi Delaney PA-C 02/15/2010 Office visit Tobi Delaney PA-C 01/11/2010 Office visit Tobi Delaney PA-C 10/04/2009 Office visit Tobi Delaney PA-C 09/01/2009 Office visit Tobi Delaney PA-C
--- OUTSIDE RECORDS SUMMARY | 2018-04-04 23:02 | XMS REPORT ---
Author TOBI Davis [facility] Address [address] [place], [place] [phone] Care Team Providers Care Zinc Plating Machine Operator Name Role Phone TOBI GRECO PCP Unavailable TOBI GRECO PreferredProvider Unavailable Allergies and Adverse Reactions Name Reaction Notes NO KNOWN DRUG ALLERGIES Plan of Treatment Planned Activity Comments Planned Date Planned Time Plan/Goal CMP 06/19/2016 12:00 AM Holter monitoring 01/17/2015 12:00 AM Medications Active Name Start Date Estimated Completion Date SIG Comments Mylanta [place] 400-135 mg/5 mL oral suspension 07/28/2012 take [...] HC BMI BSA BMI Percentile O2 Sat(%) 07/09/2017 9:56:00 AM 122 mmHg 78 mmHg [...] without abnormal findings Jul 09 2017 10:09AM Payers Insurance Name Company Name Plan Name Plan Number Policy Number Policy Group Number Start Date [facility] [id number] N/A [place] Medical Assistance Program [place] Medical Assistance Prog [id number] N/A History of Encounters Visit Date Visit Type Provider 07/09/2017 Office visit TOBI GRECO PA 05/17/2017 Office visit TOBI GRECO PA 05/07/2017 Office visit TOBI GRECO PA 01/24/2017 Office visit TOBI GRECO PA 11/01/2016 Office visit TOBI GRECO PA 06/19/2016 Office visit TOBI GRECO PA 01/10/2016 [...]
--- OUTSIDE RECORDS SUMMARY | 2018-04-04 23:02 | XMS REPORT ---
Author TOBI Davis [facility] Address [address] [place], [place] [phone] Care Team Providers Care Pony Edger Name Role Phone TOBI GRECO PCP Unavailable [...] oral route 2 times per day Mylanta [place] 400-135 mg/5 mL oral suspension 07/28/2012 take [...] HC BMI BSA BMI Percentile O2 Sat(%) 11/22/2015 10:23:00 AM 110 mmHg 62 mmHg [...] Olecranon bursitis, left Nov 22 2015 10:23AM Payers Insurance Name Company Name Plan Name Plan Number Policy Number Policy Group Number Start Date [facility] [id number] N/A [place] Medical Assistance [facility] Medical Assistance Pro [id number] N/A History of Encounters Visit Date Visit Type Provider 11/22/2015 Office visit TOBI HENDRICKS 04/04/2015 Office [...]
--- OUTSIDE RECORDS SUMMARY | 2018-04-04 23:03 | XMS REPORT ---
Author Author TOBI DELANEY [facility] Address [address] [place], [place] [phone] Care Team Providers Care Manager Sales Training Name Role Phone TOBI DELANEY PCP TOBI DELANEY PreferredProvider Allergies and Adverse Reactions Name Reaction Notes NO KNOWN DRUG ALLERGIES Plan of Treatment Planned Activity Comments Planned Date Planned Time Plan/Goal CMP 06/19/2016 12:00 AM Holter monitoring 01/17/2015 12:00 AM Medications Active Name Start Date Estimated Completion Date SIG Comments Mylanta [place] 400-135 mg/5 mL oral suspension 07/28/2012 take [...] Medrol (Miah) 4 mg oral tablets,dose pack 11/07/2017 11/12/2017 take as directed for 5 days Zithromax Z-Miah 250 mg oral tablet 11/07/2017 11/12/2017 take 2 tablets (500 mg) by oral [...] HC BMI BSA BMI Percentile O2 Sat(%) 11/07/2017 11:22:00 AM 110 mmHg 80 mmHg 86 bpm 16 rpm 97.6 F 208 lbs 69 in 30.72 kg/m2 2.14 m2 98 % 07/09/2017 9:56:00 AM 122 mmHg 78 mmHg 88 bpm 18 rpm 97 F 205 lbs 70 in 29.4141 kg/m 2.143 m 97 % 05/31/2017 9:06:00 AM 118 mmHg [...] 11:22AM Sinus pressure Nov 07 2017 11:22AM Payers Insurance Name Company Name Plan Name Plan Number Policy Number Policy Group Number [facility] [id number] N/A [place] Medical Assistance [facility] Medical [facility] Pro [id number] N/A History of Encounters Visit Date Visit Type Provider 11/07/2017 Office visit TOBI HENDRICKS 07/09/2017 Office visit TOBI HENDRICKS 05/17/2017 Office visit TOBI DELANEY PA 05/07/2017 Office visit TOBI DELANEY PA 01/24/2017 Office visit TOBI DELANEY PA 11/01/2016 Office visit TOBI DELANEY PA 06/19/2016 Office visit TOBI DELANEY PA 01/10/2016 Office visit TOBI DELANEY PA 11/22/2015 Office visit TOBI DELANEY PA 04/04/2015 Office visit TOBI DELANEY PA 01/13/2015 Office visit TOBI HENDRICKS 07/07/2014 Office visit TOBI DELANEY PA 06/14/2014 Office visit TOBI DELANEY PA 04/27/2014 Office visit TOBI DELANEY PA 03/12/2013 [...]
--- OUTSIDE RECORDS SUMMARY | 2018-04-04 23:03 | XMS REPORT | Continuity of Care Document ---
Author Author [facility] Organization [facility] Address Unknown Phone Unavailable Allergies There is no data. Medications There is no data. Problems There is no data. Procedures There is no data. Results Test Result Range Comprehensive Metabolic Panel - 12/28/16 12:06 Albumin 4.5 g/dL 3.6-5.1 ALP 73 U/L 35-130 ALT 20 U/L 6-45 Anion Gap 14 6-14 AST 18 U/L 2-40 BUN 15 mg/dL 5-25 Calcium 9.5 mg/dL 8.3-10.4 Chloride 104 mmol/L 95-114 CO2 23 mEq/L 22-33 Creat 0.91 mg/dL 0.50-1.50 eGFR 94 mL/min/1.73m2 >59 Globulin 3.1 g/dL 2.3-3.5 Glucose 132 mg/dL 70-110 Osmo 286 280-295 Potassium 4.0 mmol/L 3.5-5.3 Sodium 137 mmol/L 134-148 TBil 0.4 mg/dL 0.2-1.2 TP 7.6 g/dL 6.0-8.3 Carbamazepine - 12/30/17 09:05 Carbamazepine 0.2 ug/mL 4.0-10.0 Encounters ACCT No. Visit Date/Time Discharge Status Pt. Type Provider Facility Loc./Unit Complaint [id number] 07/21/2014 18:29:00 07/21/2014 20:31:00 DIS Emergency [id number] 12/20/2017 10:51:38 12/20/2017 23:59:59 CLS Outpatient TOBI GRECO [id number] 11/07/2017 10:35:02 11/07/2017 23:59:59 CLS Outpatient TOBI GRECO [id number] 07/09/2017 11:01:35 07/09/2017 23:59:59 CLS Outpatient TOBI GRECO [id number] 05/17/2017 10:25:59 05/17/2017 23:59:59 CLS Outpatient ANGUSTOBI [id number] 05/07/2017 14:26:59 05/07/2017 23:59:59 CLS Outpatient ANGUS, TOBI Noguera [id number] 01/24/2017 11:19:14 01/24/2017 23:59:59 CLS Outpatient ANGUS, TOBI Noguera [id number] 11/01/2016 11:01:23 11/01/2016 23:59:59 CLS Outpatient ANGUSTOBI [id number] 06/19/2016 11:07:50 06/19/2016 23:59:59 CLS Outpatient ANGUS, TOBI Noguera [id number] 01/10/2016 11:03:47 01/10/2016 23:59:59 CLS Outpatient ANGUSTOBI Poornima [id number] 11/22/2015 11:12:05 11/22/2015 23:59:59 CLS Outpatient ANGUS, TOBI Noguera [id number] 04/04/2015 11:16:08 04/04/2015 23:59:59 CLS Outpatient ANGUSTOBI Poornima [id number] 01/13/2015 14:01:11 01/13/2015 23:59:59 CLS Outpatient ANGUSTOBI Poornima [id number] 07/07/2014 10:56:18 07/07/2014 23:59:59 CLS Outpatient ANGUSTOBI Poornima [id number] 06/14/2014 14:31:44 06/14/2014 23:59:59 CLS Outpatient ANGUS, TOBI Poornima [id number] 04/27/2014 11:58:37 04/27/2014 23:59:59 CLS Outpatient ANGUSTOBI ABARCA Poornima [id number] 12/30/2017 09:01:00 12/30/2017 23:59:00 DIS Outpatient Tobi Greco [id number] 05/07/2017 14:14:00 05/07/2017 23:59:00 DIS Outpatient Tobi Greco [id number] 12/28/2016 11:55:00 12/28/2016 23:59:00 DIS Outpatient Tobi Greco
[2018-04-04] MEDS ORDERED: RX-NAPROXEN (NAPROSYN) 250 MG TAB PPK#4 PO STA (23:24)
[2018-04-04] MEDS ORDERED: NAPR-915 PO (23:26)
--- NOTE | 2018-04-04 23:26 | ED Lower Extremity ---
General Chief Complaint: Lower Extremity Stated Complaint: FALL Nursing Triage Note: Patient advises he was taking a shower when he slipped twisting his left knee and fell backwards. Pt. denies hitting his head and denies loss of consciousness. 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 NO PROBLEMS SINCE THEN, PCP: HAROON GRECO Allergies and Home Medications Allergies Coded Allergies: No Known Drug Allergies (Unverified , 04/04/18) Home Medications Naproxen 500 Mg Tablet, 500 MG PO BID Prescribed by: ELZA WALLACE on 04/04/18 [id number] Patient Home Medication List Home Medication List Reviewed: Yes Constitutional: no symptoms reported Musculoskeletal: see HPI Skin: no symptoms reported Psychiatric/Neurological: No Symptoms Reported Past Netnuoe-Jsdwkv-Yzryya Hx Patient Social History Alcohol Use: Denies Use Recreational Drug Use: No Smoking Status: Never a Smoker Recent Foreign Travel: No Contact w/Someone Who Travel: No Recent Infectious Disease Expo: No Physical Abuse: No Sexual Abuse: No Immunizations Up To Date Tetanus Booster (TDap): Unknown Past Medical History Surgeries: No Respiratory: No Cardiac: No Neurological: Yes Developmental Disorder Genitourinary: No Gastrointestinal: Yes Chronic Constipation Musculoskeletal: No Endocrine: No HEENT: No Cancer: No Psychosocial: Yes (MENTALLY CHALLNEGED) ADD/ADHD Nursing Suicide Risk Score: 0 Integumentary: No Blood Disorders: No Physical Exam Vital Signs Vital Signs - First Documented 04/04/18 22:31 Temp 97.8 Pulse 78 Resp 14 B/P (MAP) 137/91 (106) Pulse Ox 98 O2 Delivery Room Air Capillary Refill : Less Than 3 Seconds General Appearance: WD/WN, no apparent distress, other (WALKS WITH VERY SLIGHT LIMP ON LEFT LEG) Hips: bilateral hip normal inspection Legs: bilateral leg normal inspection Knees: right knee normal inspection; left knee other (SLIGHT TENDERNESS TO LEFT ANTERIOR KNEE/PATELLA. NO EXTERNAL EVIDENCE OF TRAUMA AND NO SWELLING. FULL ROM. NO LIGAMENT LAXITY. 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, no motor/sensory deficits, alert, normal mood/affect, oriented x 3 Skin: normal color, warm/dry Procedures/Interventions Splinting and Joint Reduction : Yoshi wrap: Yes Immobilizers: 19 inch Knee Progress/Results/Core Measures Results/Orders My Orders Orders - ELZA WALLACE DO Knee, Left, 3 Views (04/04/18 22:38) Yoshi Bandage (04/04/18 23:24) Knee Immobilizer (04/04/18 23:24) Rx-Naproxen (Rx-Naprosyn) (04/04/18 23:24) Rx-Naproxen (Rx-Naprosyn) (04/04/18 23:58) Vital Signs/I&O 04/04/18 04/04/18 22:31 23:41 Temp 97.8 97.8 Pulse 78 76 Resp 14 16 B/P (MAP) 137/91 (106) 123/78 (106) Pulse Ox 98 99 O2 Delivery Room Air Room Air Blood Pressure Mean: 106 Diagnostic Imaging Comments XRAYS LEFT KNEE--NO ACUTE PROCESS, PENDING RADIOLOGIST REVIEW Reviewed: Reviewed by Me Departure Impression Primary Impression: Contusion of left knee Additional Impression: Left knee sprain Disposition: 01 HOME, SELF-CARE Condition: Stable Departure-Patient Inst. Referrals: NO,LOCAL PHYSICIAN (PCP/Family) Primary Care Physician Patient Instructions: Contusion (DC), How to Use an Elastic Bandage, Knee Immobilizer (DC), Knee Sprain (DC) Add. Discharge Instructions: WEAR YOSHI WRAP AND KNEE IMMOBILIZER AT ALL TIMES ICE TO AREA AT 20 MINUTE INTERVALS ELEVATE LEG MUCH POSSIBLE FOLLOW UP WITH AARON GRECO NEXT WEEK FOR RECHECK All discharge instructions reviewed with patient and/or family. Voiced understanding. Scripts Naproxen (Naproxen) 500 Mg Tablet 500 MG PO BID, #20 TAB Prov: ELZA WALLACE DO 04/04/18 ELZA WALLACE DO April 04, 2018 23:26
[2018-04-04 23:41] VITALS: BP 123/78
[2018-04-04] MEDS ORDERED: RX-NAPROXEN (NAPROSYN) 250 MG TAB PPK#4 PO PRN (23:58)
--- NOTE | 2018-04-05 06:58 | Diagnostic Imaging Report ---
PATIENT HISTORY: Fall, left knee pain.. TECHNIQUE: 3 views of the left knee COMPARISON: 07/21/2014 FINDINGS: No acute fracture or dislocation is seen in the left knee. Alignment appears normal. There are minimal degenerative changes in the medial and patellofemoral compartments. No significant left knee joint effusion is seen, although the lateral view is suboptimal for evaluation. IMPRESSION: 1. No acute osseous abnormality seen in the left knee. There are minimal degenerative changes present. Dictated by: Dictated on workstation # [id number]
== END 2018-04-05 | disposition home or self-care (01) ==
LOC: EDUNIT# 22:14 → ER 22:15
DX: S83.92XA Sprain of unspecified site of left knee, initial encounter (principal); F90.9 Attention-deficit hyperactivity disorder, unspecified type; Z87.19 Personal history of other diseases of the digestive system; W01.0XXA Fall on same level from slipping, tripping and stumbling without subsequent striking against object, initial encounter; X50.0XXA Overexertion from strenuous movement or load, initial encounter; Y92.002 Bathroom of unspecified non-institutional (private) residence as the place of occurrence of the external cause
CPT/HCPCS: 73562

== ENCOUNTER 2019-03-07 15:19 | Emergency (ER) | payer MEDICAID ==
[~2019-03-07] VITALS: Ht 175.3 cm; Wt 95.3 kg
[~2019-03-07 15:19] MED LIST: NAPR-915 PO
--- OUTSIDE RECORDS SUMMARY | 2019-03-07 15:26 | XMS REPORT ---
Author Author TOBI GRECO [facility] Address [address] [place], [place] [id number] Care Team Providers Care Plant Operator Helper Name Role Phone TOBI GRECO PCP TOBI GRECO PreferredProvider Allergies and Adverse Reactions Name Reaction Notes NO KNOWN DRUG ALLERGIES Plan of Treatment Planned Activity Comments Planned Date Planned Time Plan/Goal CMP 06/19/2016 12:00 AM CMP 04/21/2018 12:00 AM LIPID PANEL 04/21/2018 12:00 AM Holter monitoring 01/17/2015 12:00 AM Medications Active Name Start Date Estimated Completion Date SIG Comments Mylanta [place] 400-135 mg/5 mL oral suspension 07/28/2012 take [...] by oral route 3 times per day Penlac 8 % topical solution 02/12/2017 apply to the affected area(s) by topical route once daily preferably at bedtime or 8 hours before washing Debrox 6.5 % otic drops 04/17/2017 Instill 5 drops into right ear twice daily for 1 week per month ( - ) ranitidine HCl 150 mg oral tablet 10/08/2017 take 1 tablet (150 mg) by oral route 2 times per day Therems oral tablet 10/08/2017 take 1 tablet by oral route daily DOK 100 mg oral capsule 10/08/2017 take 2 capsules (200 mg) by oral route once daily at bedtime as needed ibuprofen 600 mg oral tablet 06/02/2018 TAKE 1 TABLET BY MOUTH AT BEDTIME FOR RIGHT KNEE PAIN Ear Drops (carbamide peroxide) 6.5 % otic (ear) drops 06/09/2018 INSTILL 5 DROPS INTO RIGHT EAR TWICE DAILY FOR 1 WEEK PER MONTH (-) amoxicillin 500 mg oral capsule 08/05/2018 TAKE 4 CAPSULES (2000MG) BY MOUTH 1 HOUR BEFORE DENTAL PROCEDURE OR MINOR SURGERY FOR PROPHYLAXIS Spiriva Respimat 2.5 mcg/actuation inhalation mist 08/15/2018 inhale 2 puffs (5 mcg) by inhalation route once daily at the same time BID DOK 100 mg oral capsule 09/09/2018 TAKE 2 CAPSULES (200MG) BY MOUTH AT BEDTIME FOR CONSTIPATION folic acid 1 mg oral tablet 10/08/2018 TAKE 1 TABLET BY MOUTH ONCE DAILY FOR SUPPLEMENT ranitidine HCl 150 mg oral tablet 10/08/2018 TAKE 1 TABLET BY MOUTH TWICE DAILY loratadine 10 mg oral tablet 10/08/2018 TAKE 1 TABLET BY MOUTH AT BEDTIME FOR ENVIRONMENTAL ALLERGIES Therems oral tablet 10/08/2018 TAKE 1 TABLET BY MOUTH ONCE DAILY FOR NUTRITIONAL SUPPLEMENT lisinopril-hydrochlorothiazide 10-12.5 mg oral tablet 10/08/2018 TAKE 1 TABLET BY MOUTH ONCE DAILY FOR BLOOD PRESURE famotidine 10 mg oral tablet 10/08/2018 TAKE 1 TABLET BY MOUTH TWICE DAILY BENGAY ULTRA CREAM 11/10/2018 APPLY DAILY TO AFFECT AREA NEEDED FOR PAIN hydrocortisone 1 % topical cream 11/11/2018 APPLY TO AFFECTED AREA(S) NEEDED FOR ITCHING Rulox 200-200-20 mg/5 mL oral suspension 12/01/2018 GIVE 2 TEASPOONSFUL ( 10ML) BY MOUTH EVERY 4 TO 6 HOURS NEEDED FOR STOMACH DISCOMFORT Name Start Date Expiration Date SIG Comments [...] 2 times a day for 7 days Medrol (Miah) 4 mg oral tablets,dose pack 12/20/2017 12/25/2017 take as directed for 5 days Zithromax Z-Miah 250 mg oral tablet 12/20/2017 12/25/2017 take 2 tablets (500 mg) by oral route once daily for 1 day then 1 tablet (250 mg) by oral route once daily for 4 days Discontinued Name Start Date Discontinued Date SIG Comments Zantac 150 mg oral tablet 06/17/2012 06/24/2016 take 1 tablet (150 mg) by oral route 2 times per day Lamisil 250 mg oral tablet 01/25/2017 01/13/2019 take 1 tablet by oral route daily ciclopirox 8 % topical solution 04/01/2018 01/29/2019 APPLY TO THE AFFECTED AREA(S) TOPICALLY ONCE DAILY AT BEDTIME OR 8 HOURS BEFORE WASHING. econazole 1 % topical cream 09/30/2018 01/29/2019 APPLY TO AFFECTED AREA(S) AND SURROUNDING AREAS OF SKIN TWICE DAILY Problem List Description Status Onset Mental retardation [...] HC BMI BSA BMI Percentile O2 Sat(%) 01/27/2019 10:36:00 AM 128 mmHg 82 mmHg 80 bpm 18 rpm 98 F 210 lbs 70 in 30.1316 kg/m 2.169 m 97 % 10/15/2018 10:56:00 AM 118 mmHg 80 mmHg 80 bpm 18 rpm 98.4 F 205 lbs 98 % 08/11/2018 2:30:00 PM 126 mmHg 82 mmHg 86 bpm 18 rpm 98.2 F 210 lbs 70 in 30.1316 kg/m 2.169 m 98 % 04/21/2018 11:04:00 AM 124 mmHg 78 mmHg 87 bpm 18 rpm 98.2 F 211 lbs 69 in 31.16 kg/m2 2.16 m2 98 % 04/09/2018 11:16:00 AM 118 mmHg 62 mmHg 104 bpm 18 rpm 97.4 F 215 lbs 96 % 12/20/2017 11:11:00 AM 128 mmHg 80 mmHg [...] 08/29/2011 12:00 AM TB INTRADERMAL TEST Reviewed 04/21/2018 12:00 AM COMPLETE CBC W/AUTO DIFF WBC Returned 07/23/2018 12:00 AM LIPID PANEL Returned 08/11/2018 12:00 AM THERAPEUTIC PROPHYLACTIC/DX INJECTION SUBQ/IM Reviewed 08/11/2018 12:00 AM Decadron 8mg Injection, [facility] Medicaid Reviewed 08/11/2018 12:00 AM Depo-Medrol 80 Mg Injection, [facility] Medicaid Reviewed 10/15/2018 12:00 AM THER/PROPH/DIAG INJ SC/IM Reviewed 10/15/2018 12:00 AM Decadron 8mg Injection Reviewed 10/15/2018 12:00 AM Depo-Medrol 80mg Injection Reviewed 12/04/2018 12:00 AM INFLUENZA A/B AG EIA Returned Results Summary Not available. History Of Immunizations Name Date Admin Mfg Name Mfg Code Trade Name Lot# Route Inj Vis Given Vis Pub CVX Influenza 10/05/2014 Not Entered NE Not Entered Not Entered Not Entered 12/02/2018 12/02/2018 141 History of Past Illness Name Date [...] infection, unspecified type Dec 20 2017 11:11AM Encounter for examination following treatment at hospital Apr 09 2018 11:17AM Knee strain, left, sequela Apr 09 2018 11:17AM Fatigue Apr 21 2018 10:43AM Constipation Apr 21 2018 10:43AM Gastritis Apr 21 2018 10:43AM Encounter for routine adult health examination without abnormal findings Apr 21 2018 11:04AM Hyper reflexia Jul 23 2018 9:39AM Chest congestion Aug 11 2018 2:32PM Acute seasonal allergic rhinitis, unspecified trigger Aug 11 2018 2:32PM Dysfunction of right eustachian tube Oct 15 2018 10:57AM Purulent postnasal drainage Oct 15 2018 10:57AM Upper respiratory tract infection, unspecified type Oct 15 2018 10:57AM Cough Dec 04 2018 11:28AM Encounter for routine adult health examination without abnormal findings Jan 28 2019 6:50AM Payers Insurance Name Company Name Plan Name Plan Number Policy Number Policy Group Number Start Date [facility] [id number] N/A [place] [facility] [id number] N/A History of Encounters Visit Date Visit Type Provider 01/27/2019 Office visit TOBI GRECO PA 12/04/2018 Office visit TOBI GRECO PA 10/15/2018 Office visit TOBI GRECO PA 08/11/2018 Office visit TOBI GRECO PA 04/21/2018 Office visit TOBI GRECO PA 04/09/2018 Office visit TOBI GRECO PA 12/20/2017 Office visit TOBI GRECO PA 11/07/2017 Office visit TOBI GRECO PA 07/09/2017 Office visit TOBI GRECO PA 05/17/2017 [...]
--- OUTSIDE RECORDS SUMMARY | 2019-03-07 15:27 | XMS REPORT ---
Author TOBI Davis [facility] Address [address] [place], [place] [id number] Care Team Providers Care Newspaper Photo Editor Name Role Phone TOBI GRECO PCP TOBI GRECO PreferredProvider Allergies and Adverse Reactions Name Reaction Notes NO KNOWN DRUG ALLERGIES Plan of Treatment Planned Activity Comments Planned Date Planned Time Plan/Goal CMP 06/19/2016 12:00 AM CMP 04/21/2018 12:00 AM LIPID PANEL 04/21/2018 12:00 AM Holter monitoring 01/17/2015 12:00 AM Medications Active Name Start Date Estimated Completion Date SIG Comments Mylanta [place] 400-135 mg/5 mL oral suspension 07/28/2012 take [...] route once daily at bedtime as needed ciclopirox 8 % topical solution 04/01/2018 APPLY TO THE AFFECTED AREA(S) TOPICALLY ONCE DAILY AT BEDTIME OR 8 HOURS BEFORE WASHING. ibuprofen 600 mg oral tablet 06/02/2018 TAKE [...] (200MG) BY MOUTH AT BEDTIME FOR CONSTIPATION econazole 1 % topical cream 09/30/2018 APPLY TO AFFECTED AREA(S) AND SURROUNDING AREAS OF SKIN TWICE DAILY folic acid 1 mg oral tablet 10/08/2018 [...] TAKE 1 TABLET BY MOUTH TWICE DAILY Name Start Date Expiration Date SIG Comments [...] HC BMI BSA BMI Percentile O2 Sat(%) 10/15/2018 10:56:00 AM 118 mmHg 80 mmHg [...] Reviewed 08/11/2018 12:00 AM Decadron 8mg Injection, [facility] Medicaid Reviewed 08/11/2018 12:00 AM Depo-Medrol 80 Mg Injection, [facility] Medicaid Reviewed 10/15/2018 12:00 AM THER/PROPH/DIAG INJ SC/IM Reviewed 10/15/2018 12:00 AM Decadron 8mg Injection Reviewed 10/15/2018 12:00 AM Depo-Medrol 80mg Injection Reviewed Results Summary Not available. History Of [...] infection, unspecified type Oct 15 2018 10:57AM Payers Insurance Name Company Name Plan Name Plan Number Policy Number Policy Group Number [facility] [id number] N/A [place] Medical Assistance [facility] Medical Assistance Pro [id number] N/A History of Encounters Visit Date Visit Type Provider 10/15/2018 Office visit TOBI HENDRICKS 08/11/2018 Office visit TOBI HENDRICKS 04/21/2018 Office visit TOBI HENDRICKS 04/09/2018 Office visit TOBI HENDRICKS 12/20/2017 Office visit TOBI HENDRICKS 11/07/2017 Office visit TOBI HENDRICKS 07/09/2017 Office visit TOBI HENDRICKS 05/17/2017 Office visit TOBI HENDRICKS 05/07/2017 Office visit TOBI HENDRICKS 01/24/2017 Office visit TOBI HENDRICKS 11/01/2016 Office visit TOBI HENDRICKS 06/19/2016 Office visit TOBI HENDRICKS 01/10/2016 Office visit TOBI GRECO PA 11/22/2015 [...]
--- OUTSIDE RECORDS SUMMARY | 2019-03-07 15:27 | XMS REPORT ---
Author Author TOBI DELANEY [facility] Address [address] [place], [place] [address] Care Team Providers Care Electric Meter Tester Helper Name Role Phone TOBI DELANEY PCP TOBI DELANEY PreferredProvider Allergies and Adverse Reactions Name Reaction Notes NO KNOWN DRUG ALLERGIES Plan of Treatment Planned Activity Comments Planned Date Planned Time Plan/Goal CMP 06/19/2016 12:00 AM CMP 04/21/2018 12:00 AM LIPID PANEL 04/21/2018 12:00 AM INFLUENZA A & B 12/04/2018 12:00 AM Holter monitoring 01/17/2015 12:00 AM Medications Active Name Start Date Estimated Completion Date SIG Comments Mylanta [place] 400-135 mg/5 mL oral suspension 07/28/2012 take [...] Reviewed 08/11/2018 12:00 AM Decadron 8mg Injection, [facility] Medicaid Reviewed 08/11/2018 12:00 AM Depo-Medrol 80 Mg Injection, [facility] Medicaid Reviewed 10/15/2018 12:00 AM THER/PROPH/DIAG INJ [...] 2018 10:57AM Cough Dec 04 2018 11:28AM Payers Insurance Name Company Name Plan Name Plan Number Policy Number Policy Group Number Start Date [facility] [id number] N/A [place] Medical [place] [id number] N/A History of Encounters Visit Date Visit Type Provider 12/04/2018 Office visit TOBI HENDRICKS 10/15/2018 Office visit TOBI HENDRICKS 08/11/2018 Office visit TOBI HENDRICKS 04/21/2018 Office visit TOBI HENDRICKS 04/09/2018 Office visit TOBI DELANEY PA 12/20/2017 Office visit TOBI DELANEY PA 11/07/2017 Office visit TOBI DELANEY PA 07/09/2017 Office visit TOBI DELANEY PA 05/17/2017 Office visit TOBI DELANEY PA 05/07/2017 Office visit TOBI DELANEY PA 01/24/2017 Office visit TOBI DELANEY PA 11/01/2016 Office visit TOBI DELANEY PA 06/19/2016 Office visit TOBI DELANEY PA 01/10/2016 Office visit TOBI DELANEY PA 11/22/2015 Office visit TOBI DELANEY PA 04/04/2015 Office visit TOBI DELANEY PA 01/13/2015 Office visit TOBI DELANEY PA 07/07/2014 Office visit TOBI DELANEY PA 06/14/2014 [...]
[2019-03-07] MEDS ORDERED: CYCLOBENZAPRINE 10 MG (FLEXERIL) TAB ONE (15:28)
--- OUTSIDE RECORDS SUMMARY | 2019-03-07 15:28 | XMS REPORT ---
Author TOBI Davis [facility] Address [address] [place], [place] [address] Care Team Providers Care Bumper Operator Name Role Phone TOBI GRECO PCP TOBI GRECO PreferredProvider Allergies and Adverse Reactions Name Reaction Notes NO KNOWN DRUG ALLERGIES Plan of Treatment Planned Activity Comments Planned Date Planned Time Plan/Goal CMP 06/19/2016 12:00 AM CMP 04/21/2018 12:00 AM LIPID PANEL 04/21/2018 12:00 AM Injection,Subcutaneous/Intramuscul, [facility] Medicaid 08/11/2018 12:00 AM Holter monitoring 01/17/2015 12:00 AM Medications Active Name Start Date Estimated Completion Date SIG Comments Mylanta [place] 400-135 mg/5 mL oral suspension 07/28/2012 take [...] PROPHYLAXIS Spiriva Respimat 2.5 mcg/actuation inhalation mist 08/11/2018 inhale 2 puffs (5 mcg) by inhalation route once daily at the same time each day Name Start Date Expiration Date SIG [...] HC BMI BSA BMI Percentile O2 Sat(%) 08/11/2018 2:30:00 PM 126 mmHg 82 mmHg [...] Returned 07/23/2018 12:00 AM LIPID PANEL Returned Results Summary Not available. History Of [...] rhinitis, unspecified trigger Aug 11 2018 2:32PM Payers Insurance Name Company Name Plan Name Plan Number Policy Number Policy Group Number Start Date [facility] [id number] N/A [place] Medical Assistance [facility] Medical Assistance Pro [id number] N/A History of Encounters Visit Date Visit Type Provider 08/11/2018 Office visit TOBI GRECO PA 04/21/2018 [...]
--- NOTE | 2019-03-07 15:29 | ED Fall/Injury ---
General Stated Complaint: SHOULDER,HIP PAIN Source: patient Exam Limitations: no limitations History of Present Illness Date Seen by Provider: Mar 07, 2019 Time Seen by Provider: 15:31 Initial Comments To ER per private vehicle by his caregiver since he is a resident with with [facility] in [place]. He [place] and fell [place] on his left side. Did not hit his head. Complains of pain between the neck and the left shoulder but no pain in the neck itself, pain in the left shoulder left elbow and left hip. On a scale of 1-10 he rates the pain at "100"but is ambulatory to room 6 Occurred: just prior to arrival Severity: moderate Injuries/Pain Location: upper extremity, lower extremity Context: slipped Loss of Consciousness: no loss of consciousness Allergies and Home Medications Allergies Coded Allergies: No Known Drug Allergies (Unverified , 04/04/18) Home Medications Naproxen 500 Mg Tablet, 500 MG PO BID Prescribed by: ELZA WALLACE on 04/04/18 [id number] Patient Home Medication List Home Medication List Reviewed: Yes Review of Systems Review of Systems Constitutional: see HPI Eyes: No Symptoms Reported Ears, Nose, Mouth, Throat: no symptoms reported Respiratory: no symptoms reported Cardiovascular: no symptoms reported Genitourinary: no symptoms reported Musculoskeletal: see HPI, joint pain, muscle pain Skin: no symptoms reported Psychiatric/Neurological: No Symptoms Reported Past Fnroxgv-Ojzwjj-Rsomki Hx Patient Social History Recent Foreign Travel: No Contact w/Someone Who Travel: No Immunizations Up To Date Tetanus Booster (TDap): Unknown Past Medical History Surgeries: No Respiratory: No Cardiac: No Neurological: Yes Developmental Disorder Genitourinary: No Gastrointestinal: Yes Chronic Constipation Musculoskeletal: No Endocrine: No HEENT: No Cancer: No Psychosocial: Yes (MENTALLY CHALLNEGED) ADD/ADHD Integumentary: No Blood Disorders: No Physical Exam Vital Signs Vital Signs - First Documented 03/07/19 15:22 Temp 98.7 Pulse 91 Resp 18 B/P (MAP) 142/92 (109) Pulse Ox 96 O2 Delivery Room Air Capillary Refill : Height, Weight, BMI Height: 6'0" Weight: 215lbs. oz. 97.245595ko; BMI Method:Stated General Appearance: WD/WN, no apparent distress HEENT: PERRL/EOMI, normal ENT inspection Neck: non-tender, full range of motion; No tender lateral, No tender midline Cardiovascular: regular rate, rhythm Respiratory: chest non-tender, no respiratory distress, no accessory muscle use Gastrointestinal: normal bowel sounds, non tender, soft Extremities: normal capillary refill, other (the left arm flexed at 90 held tightly to the body. The shoulder has no obvious deformity, no erythema ecchymosis. There is a strong 2+ and strength radial pulse with normal sensation of the fingertips. No deformity of the humerus forearm wrist or elbow. He is ambulatory to room 6 without antalgic gait so I have a low index of suspicion for bony injury to the left hip) Neurologic/Psychiatric: alert, normal mood/affect, oriented x 3 Skin: normal color, warm/dry Ona Coma Score Best Eye Response: (4) Open Spontaneously Best Verbal Response: (5) Oriented Best Motor Response: (6) Obeys Commands Ona Total: 15 Progress/Results/Core Measures Results/Orders My Orders Orders - ELIER LIVINGSTON APRN Shoulder, Left, 3 Views (03/07/19 15:26) Forearm, Left, 2 Views (03/07/19 15:26) Femur, Left, 2 Views (03/07/19 15:26) Ketorolac Injection (Toradol Injection) (03/07/19 15:30) Orphenadrine Injection (Norflex Injectio (03/07/19 15:30) Cyclobenzaprine Tablet (Flexeril Tablet) (03/07/19 15:30) Cyclobenzaprine Tablet (Flexeril Tablet) (03/07/19 15:28) Medications Given in ED Current Medications Medications Dose Ordered Sig/Vicki Route Start Time Stop Time Status Last Admin Dose Admin Ketorolac Tromethamine 60 mg ONCE ONCE IM 03/07/19 15:30 03/07/19 15:31 DC 03/07/19 15:32 60 MG Vital Signs/I&O 03/07/19 15:22 Temp 98.7 Pulse 91 Resp 18 B/P (MAP) 142/92 (109) Pulse Ox 96 O2 Delivery Room Air Departure Impression Primary Impression: Fall Qualified Codes: W19.XXXA - Unspecified fall, initial encounter Additional Impressions: Contusion of shoulder, left Qualified Codes: S40.012A - Contusion of left shoulder, initial encounter Contusion of hip, left Qualified Codes: S70.02XA - Contusion of left hip, initial encounter Disposition: HOME, SELF-CARE Condition: Stable Departure-Patient Inst. Decision time for Depature: 16:10 Referrals: NO,LOCAL PHYSICIAN (PCP/Family) Primary Care Physician Patient Instructions: Contusion (DC) Add. Discharge Instructions: 1. Tylenol and Motrin for pain control 2. Return to ER for any concerns 3. See your doctor next week for recheck if you're having any persistent pain. ELIER LIVINGSTON MANAGER MATERIALS MANAGEMENT Mar 07, 2019 15:29
--- OUTSIDE RECORDS SUMMARY | 2019-03-07 15:29 | XMS REPORT ---
Author Author TOBI DELANEY [facility] Address [address] [place], [place] [id number] Care Team Providers Care Wash Tub Machine Operator Name Role Phone TOBI DELANEY PCP TOBI DELANEY PreferredProvider Allergies and Adverse Reactions Name Reaction Notes NO KNOWN DRUG ALLERGIES Plan of Treatment Planned Activity Comments Planned Date Planned Time Plan/Goal CMP 06/19/2016 12:00 AM CMP 04/21/2018 12:00 AM LIPID PANEL 04/21/2018 12:00 AM LIPID PANEL 07/23/2018 12:00 AM Holter monitoring 01/17/2015 12:00 AM Medications Active Name Start Date Estimated Completion Date SIG Comments Mylanta [place] 400-135 mg/5 mL oral suspension 07/28/2012 take [...] as needed amoxicillin 500 mg oral capsule 12/25/2017 Take 4 capsules 1 hour before dental procedures or minor surgery for prophylaxis. ciclopirox 8 % topical solution 04/01/2018 APPLY TO THE AFFECTED AREA(S) TOPICALLY ONCE DAILY AT BEDTIME OR 8 HOURS BEFORE WASHING. ibuprofen 600 mg oral tablet 06/02/2018 TAKE 1 TABLET BY MOUTH AT BEDTIME FOR RIGHT KNEE PAIN Ear Drops (carbamide peroxide) 6.5 % otic (ear) drops 06/09/2018 INSTILL 5 DROPS INTO RIGHT EAR TWICE DAILY FOR 1 WEEK PER MONTH (-) Name Start Date Expiration Date SIG Comments [...] HC BMI BSA BMI Percentile O2 Sat(%) 04/21/2018 11:04:00 AM 124 mmHg 78 mmHg 87 bpm 18 rpm 98.2 F 211 lbs 69 in 31.1589 kg/m 2.1586 m 98 % 04/09/2018 11:16:00 AM 118 mmHg 62 mmHg 104 bpm 18 rpm 97.4 F 215 lbs 96 % 12/20/2017 11:11:00 AM 128 mmHg 80 mmHg 80 bpm 18 rpm 98.2 F 209 lbs 98 % 11/07/2017 11:22:00 AM 110 mmHg 80 mmHg 86 bpm 16 rpm 97.6 F 208 lbs 69 in 30.72 kg/m2 2.1432 m 98 % 07/09/2017 9:56:00 AM 122 mmHg 78 mmHg 88 bpm 18 rpm 97 F 205 lbs 70 in 29.4141 kg/m 2.14 m2 97 % 05/31/2017 9:06:00 AM 118 mmHg 78 mmHg 88 bpm 16 rpm 98.2 F 208 lbs 70 in 29.84 kg/m2 2.1586 m 98 % 05/17/2017 9:59:00 AM [...] AM COMPLETE CBC W/AUTO DIFF WBC Returned Results Summary Not available. History Of [...] 11:04AM Hyper reflexia Jul 23 2018 9:39AM Payers Insurance Name Company Name Plan Name Plan Number Policy Number Policy Group Number Start [facility] [id number] N/A [place] [employer] [place] [employer] [place] Prog [id number] N/A History of Encounters Visit Date Visit Type Provider 04/21/2018 Office visit TOBI HENDRICKS 04/09/2018 Office visit TOBI HENDRICKS 12/20/2017 Office visit TOBI DELANEY PA 11/07/2017 Office visit TOBI DELANEY PA 07/09/2017 Office visit TOBI DELANEY PA 05/17/2017 Office visit TOBI DELANEY PA 05/07/2017 Office visit TBOI DELANEY PA 01/24/2017 Office visit TOBI DELANEY [...]
[2019-03-07] MEDS ORDERED: ORPHENADRINE 60 MG/2 ML (NORFLEX) AMP IM ONE (15:30)
[2019-03-07] MEDS ORDERED: KETOROLAC 60 MG/2 ML VIAL IM ONE (15:30)
[2019-03-07] MEDS ORDERED: CYCLOBENZAPRINE 10 MG (FLEXERIL) TAB PO SCH (15:30)
--- OUTSIDE RECORDS SUMMARY | 2019-03-07 15:31 | XMS REPORT ---
Author TOBI Davis [facility] Address [address] [place], [place] [id number] Care Team Providers Care Barn Boss Name Role Phone TOBI GRECO PCP TOBI GRECO PreferredProvider Allergies and Adverse Reactions Name Reaction Notes NO KNOWN DRUG ALLERGIES Plan of Treatment Planned Activity Comments Planned Date Planned Time Plan/Goal CMP 06/19/2016 12:00 AM CMP 04/21/2018 12:00 AM LIPID PANEL 04/21/2018 12:00 AM Holter monitoring 01/17/2015 12:00 AM Medications Active Name Start Date Estimated Completion Date SIG Comments Mylanta [place] 400-135 mg/5 mL oral suspension 07/28/2012 take [...] AT BEDTIME OR 8 HOURS BEFORE WASHING. Name Start Date Expiration Date SIG Comments [...] without abnormal findings Apr 21 2018 11:04AM Payers Insurance Name Company Name Plan Name Plan Number Policy Number Policy Group Number Start Date [facility] [id number] N/A [place] Medical [place] Program [place] [employer] Prog [id number] N/A History of Encounters Visit Date Visit [...]
--- OUTSIDE RECORDS SUMMARY | 2019-03-07 15:34 | XMS REPORT ---
Author Author TOBI DELANEY [facility] Address [address] [place], [place] [id number] Care Team Providers Care Molding Plasterer Name Role Phone TOBI DELANEY PCP TOBI DELANEY PreferredProvider Allergies and Adverse Reactions Name Reaction Notes NO KNOWN DRUG ALLERGIES Plan of Treatment Planned Activity Comments Planned Date Planned Time Plan/Goal CMP 06/19/2016 12:00 AM CBC W/ AUTO DIFF (RFLX MAN DIFF IF IND). 04/21/2018 12:00 AM CMP 04/21/2018 12:00 AM LIPID PANEL 04/21/2018 12:00 AM Holter monitoring 01/17/2015 12:00 AM Medications Active Name Start Date Estimated Completion Date SIG Comments Mylanta Garner 400-135 mg/5 mL oral suspension 07/28/2012 take [...] Start Date Expiration Date SIG Comments Medrol (Imah) 4 mg oral tablets,dose pack 01/11/2010 take [...] Policy Number Policy Group Number Start Date [facility] [id number] N/A [place] [employer] [place] [employer] Pro [id number] N/A History of Encounters Visit Date Visit Type Provider 04/21/2018 Office visit TOBI HENDRICKS 04/09/2018 Office visit TOBI HENDRICKS 12/20/2017 Office visit TOBI HENDRICKS 11/07/2017 Office visit TOBI HENDRICKS 07/09/2017 Office visit TOBI HENDRICKS 05/17/2017 Office visit TOBI HENDRICKS 05/07/2017 Office visit TOBI HENDRICKS 01/24/2017 Office visit TOBI HENDRICKS 11/01/2016 Office visit TOBI DELANEY PA 06/19/2016 [...]
--- OUTSIDE RECORDS SUMMARY | 2019-03-07 15:35 | XMS REPORT ---
Author Author TOBI DELANEY [facility] Address [address] [place], [place] [phone] Care Team Providers Care Twitchell Operator Name Role Phone TOBI DELANEY PCP TOBI DELANEY PreferredProvider Allergies and Adverse Reactions Name Reaction Notes NO KNOWN DRUG ALLERGIES Plan of Treatment Planned Activity Comments Planned Date Planned Time Plan/Goal CMP 06/19/2016 12:00 AM Holter monitoring 01/17/2015 12:00 AM Medications Active Name Start Date Estimated Completion Date SIG Comments Mylanta Strang 400-135 mg/5 mL oral suspension 07/28/2012 take [...] HC BMI BSA BMI Percentile O2 Sat(%) 04/09/2018 11:16:00 AM 118 mmHg 62 mmHg [...] strain, left, sequela Apr 09 2018 11:17AM Payers Insurance Name Company Name Plan Name Plan Number Policy Number Policy Group Number Start Date [facility] [id number] N/A [place] Medical Assistance [facility] Medical Assistance Pro [id number] N/A History of Encounters Visit Date Visit Type Provider 04/09/2018 Office visit TOBI HENDRICKS 12/20/2017 Office [...] visit TOBI HENDRICKS 06/17/2012 Office visit TOBI DELANEY PA 08/29/2011 [...]
--- OUTSIDE RECORDS SUMMARY | 2019-03-07 15:35 | XMS REPORT ---
Author Author TOBI DELANEY [facility] Address [address] [place], [place] [phone] Care Team Providers Care Projection Engineer Name Role Phone TOBI DELANEY PCP TOBI [...] Date Estimated Completion Date SIG Comments Mylanta Beulah 400-135 mg/5 mL oral suspension 07/28/2012 take [...] 14 2015 7:59AM Impulse control disorder, unspecified b 2014 [...] 2018 10:43AM Gastritis Apr 21 2018 10:43AM Payers Insurance Name Company Name Plan Name Plan Number Policy Number Policy Group Number Start [facility] [id number] N/A [place] Pro[place] [id number] N/A History of Encounters Visit Date Visit [...] visit TOBI HENDRICKS 01/13/2015 Office visit TOBI DELANEY PA 07/07/2014 [...]
--- OUTSIDE RECORDS SUMMARY | 2019-03-07 15:37 | XMS REPORT ---
Author Author MARTI ESTRADA Organization [facility] Address [address] [place] [address] Care Team Providers Care Scrap Metal Processing Worker Name Role Phone MARTI ESTRADA Unavailable PROBLEMS Unknown Problems ALLERGIES No Known Allergies ENCOUNTERS Encounter Location Date Diagnosis [facility] [address] [facility] [id number] [address] Sep, [facility] [id number] [place] [address] Sep, Ingrown toenail with infection [address]60.[id number] [place] [phone] Sep, Ingrowing nail with infection L60.0 IMMUNIZATIONS No Known Immunizations SOCIAL HISTORY Never Assessed REASON FOR VISIT Toe c/o, left big toe. Has toenail fungus, has taken lamasil in the past and currently using a different med. Nurse cut toenail, now is festered up. Epson salt soaks at night have been done. CBrumbackRN, ALso asking if pt shoes are too small. If so then need an order on paper to get new shoes. PLAN OF CARE VITAL SIGNS Height 70 in 2018-09-03 Weight 211.6 lbs 2018-09-03 Temperature 98.3 degrees Fahrenheit 2018-09-03 Heart Rate 82 bpm 2018-09-03 Respiratory Rate 18 2018-09-03 BMI 30.36 kg/m2 2018-09-03 Blood pressure systolic 116 mmHg 2018-09-03 Blood pressure diastolic 84 mmHg 2018-09-03 MEDICATIONS Medication Instructions Dosage Frequency Start Date End Date Duration Status Keflex 500 mg Orally 4 times a day 1 capsule 6h Sep, Sep, 10 day(s) Active RESULTS No Results PROCEDURES No Known procedures INSTRUCTIONS MEDICATIONS ADMINISTERED No Known Medications MEDICAL (GENERAL) HISTORY Type Description Date Medical History mitral valve disorder Medical History gastritis Medical History mood disorder Medical History ADHD Medical History Bipolar Disorder Medical History constipation Medical History predominately impulsive Medical History Oppositional defiant disorder Medical History OCD Surgical History No Surgical history information
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
--- NOTE | 2019-03-07 15:58 | Diagnostic Imaging Report ---
EXAMINATION: Left forearm radiographs, 2 views. COMPARISON: None. HISTORY: 38-year-old male, fall. Left forearm pain. FINDINGS: There is no large elbow joint effusion. There is no identified acute fracture of the radius or ulna. There is no radiopaque foreign body. Bone mineralization and alignment appear unremarkable. IMPRESSION: No identified acute bony abnormality of the left forearm. Dictated by: Dictated on workstation # [id number]
--- NOTE | 2019-03-07 15:58 | Diagnostic Imaging Report ---
EXAMINATION: Left shoulder radiographs, 3 views. COMPARISON: None. HISTORY: 38-year-old male, left shoulder injury. Left shoulder pain. FINDINGS: The acromioclavicular joint is normally aligned. There are no acromioclavicular degenerative changes. The humeral head is normally positioned relative to the glenoid. The glenohumeral joint space is well preserved. There is no identified acute fracture. IMPRESSION: No acute bony abnormality at the level of the left shoulder. Dictated by: Dictated on workstation # [id number]
--- NOTE | 2019-03-07 16:05 | Diagnostic Imaging Report ---
EXAMINATION: Left femur radiographs, 2 views, 4 images. COMPARISON: None. HISTORY: 38-year-old male, fall. Left hip pain. FINDINGS: The left hip is not dislocated. There is no pronounced joint space loss of the left hip, osteophyte formation or subchondral cystic change. There is no identified acute fracture. There is no radiopaque foreign body. There is no knee joint effusion. IMPRESSION: No identified acute bony abnormality at the level of the left femur or hip. Dictated by: Dictated on workstation # [id number]
[2019-03-07 16:17] VITALS: BP 138/88
== END 2019-03-07 16:17 | disposition home or self-care (01) ==
LOC: EDUNIT# 15:19 → ER 15:20
DX: S40.012A Contusion of left shoulder, initial encounter (principal); S70.02XA Contusion of left hip, initial encounter; F90.9 Attention-deficit hyperactivity disorder, unspecified type; F98.9 Unspecified behavioral and emotional disorders with onset usually occurring in childhood and adolescence; R40.2142 Coma scale, eyes open, spontaneous, at arrival to emergency department; R40.2252 Coma scale, best verbal response, oriented, at arrival to emergency department; R40.2362 Coma scale, best motor response, obeys commands, at arrival to emergency department; Z87.19 Personal history of other diseases of the digestive system; Y92.39 Other specified sports and athletic area as the place of occurrence of the external cause; W01.0XXA Fall on same level from slipping, tripping and stumbling without subsequent striking against object, initial encounter
CPT/HCPCS: 73030; 73090; 73552

== ENCOUNTER 2019-10-15 17:22 | Emergency (ER) | payer MEDICAID ==
[~2019-10-15] VITALS: Ht 175.2 cm; Wt 95.2 kg
[2019-10-15] MEDS ORDERED: PARO20TA5 (17:51)
[2019-10-15] MEDS ORDERED: OXCA600T10 (17:51)
[2019-10-15] MEDS ORDERED: LISI1TAB6 (17:51)
[2019-10-15] MEDS ORDERED: LORA10TA7 (17:51)
[2019-10-15] MEDS ORDERED: IBUP-1773 (17:51)
[2019-10-15] MEDS ORDERED: RANI150T11 (17:51)
[2019-10-15] MEDS ORDERED: LAMO100T (17:51)
[2019-10-15] MEDS ORDERED: DOCU-244 (17:51)
[2019-10-15] MEDS ORDERED: OLAN15TA19 (17:51)
[2019-10-15] MEDS ORDERED: FOLI1TAB24 (17:51)
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
[2019-10-15 18:49] VITALS: BP 125/79
== END 2019-10-15 18:50 | disposition home or self-care (01) ==
LOC: EDUNIT# 17:22 → ER 17:24
DX: S09.90XA Unspecified injury of head, initial encounter (principal); F90.9 Attention-deficit hyperactivity disorder, unspecified type; F31.9 Bipolar disorder, unspecified; F42.9 Obsessive-compulsive disorder, unspecified; F91.3 Oppositional defiant disorder; R40.2142 Coma scale, eyes open, spontaneous, at arrival to emergency department; R40.2252 Coma scale, best verbal response, oriented, at arrival to emergency department; R40.2362 Coma scale, best motor response, obeys commands, at arrival to emergency department; Y04.2XXA Assault by strike against or bumped into by another person, initial encounter; Y92.59 Other trade areas as the place of occurrence of the external cause
CPT/HCPCS: 70450

== ENCOUNTER 2019-12-05 18:18 | Emergency (ER) | payer MEDICAID ==
[~2019-12-05] VITALS: Ht 173 cm; Wt 91.0 kg
[~2019-12-05 18:18] MED LIST changes: +DOCU-244; +FOLI1TAB24; +IBUP-1773; +LAMO100T; +LISI1TAB6; +LORA10TA7; +OLAN15TA19; +OXCA600T10; +PARO20TA5; +RANI150T11
--- NOTE | 2019-12-05 19:09 | ED Head Injury ---
General Chief Complaint: Head/Cervical Problems Stated Complaint: HEAD INJ Nursing Triage Note: PT PRESENTS TO ED WITH COMPLAINTS OF R SIDED HEAD PAIN AFTER HITTING HIS HEAD ON A TOWEL RACK AT HIS SHELTER WITH RESCARE. PT DID NOT HAVE LOC. 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 LAST TETANUS VACCINATION IS UNKNOWN. PT IS NOT ON ASPIRIN OR BLOOD THINNERS PCP: ELADIO-- Kike GRECO Allergies and Home Medications Allergies Coded Allergies: No Known Drug Allergies (Unverified , 10/15/19) Home Medications Naproxen 500 Mg Tablet, 500 MG PO BID Prescribed by: ELZA WALLACE on 04/04/18 3893 Patient Home Medication List Home Medication List Reviewed: Yes Review of Systems Review of Systems Constitutional: no symptoms reported Eyes: No Symptoms Reported Ears, Nose, Mouth, Throat: no symptoms reported Respiratory: no symptoms reported Cardiovascular: no symptoms reported Gastrointestinal: no symptoms reported Genitourinary: no symptoms reported Musculoskeletal: no symptoms reported Skin: other (MINOR ABRASION TO RIGHT SABIANISM AREA) Psychiatric/Neurological: No Symptoms Reported (PT IS MENTALLY CHALLENGED, BUT IS AT NORMAL BASELINE) Endocrine: No Symptoms Reported Hematologic/Lymphatic: No Symptoms Reported Past Ijorbat-Ephljz-Wkcsfp Hx Patient Social History Alcohol Use: Denies Use Recreational Drug Use: No Smoking Status: Former Smoker Type Used: Cigarettes Former Smoker, Quit: Dec 22, 2009 Recent Foreign Travel: No Contact w/Someone Who Travel: No Recent Infectious Disease Expo: No Recent Hopitalizations: No Physical Abuse: No Sexual Abuse: No Mistreated: No Fear: No Immunizations Up To Date Tetanus Booster (TDap): Unknown Seasonal Allergies Seasonal Allergies: Yes Past Medical History Surgeries: Yes (L HAND) Orthopedic Respiratory: No Cardiac: Yes Hypertension Neurological: Yes Developmental Disorder Genitourinary: No Gastrointestinal: Yes Chronic Constipation Musculoskeletal: No Endocrine: No HEENT: No Cancer: No Psychosocial: Yes (MILD IDD;MOOD DISORDER;OCD;OPPOSITIONAL DEFIANT DISORDER;MENTALLY CHALLENGE) ADD/ADHD, ODD, Bipolar, Personality Disorder Integumentary: No Blood Disorders: No Physical Exam Vital Signs Vital Signs - First Documented 12/05/19 18:49 Temp 36.7 Pulse 75 Resp 16 B/P (MAP) 125/82 (96) Pulse Ox 97 Capillary Refill : Less Than 3 Seconds Height, Weight, BMI Height: 5'9.00" Weight: 210lbs. oz. 95.332884ao; 30.00 BMI Method:Stated General Appearance: WD/WN, no apparent distress HEENT: PERRL/EOMI, normal ENT inspection, TMs normal, pharynx normal Neck: non-tender, full range of motion, supple, normal inspection Cardiovascular: regular rate, rhythm, no murmur Respiratory: normal breath sounds Gastrointestinal: non tender Back: normal inspection, no CVA tenderness, no vertebral tenderness Extremities: normal inspection Psychiatric: alert, oriented x 3, other (PT IS MENTALLY CHALLENGED, BUT IS ABLE TO GIVE BASIC INFORMATION, ANSWERS QUESTIONS APPROPRIATELY, AND ABLE TO GIVE HISTORY OF THE EVENTS OF TODAY AND THE INCIDENT. ) Crainal Nerves: normal hearing, normal speech, PERRL Coordination/Gait: normal gait Motor/Sensory: no motor deficit, no sensory deficit Skin: normal color, warm/dry, other (TINY, 1 CM, VERY SUPERFICIAL ABRASION TO RIGHT SABIANISM AREA. NO BLEEDING OR BRUISING. NO BONY TENDERNESS OR DEFORMITY. ) Progress/Results/Core Measures Results/Orders My Orders Orders - ELZA WALLACE DO Dipht,Pertrafael(Acell),Tet Adult (Boostrix (12/05/19 19:15) Vital Signs/I&O 12/05/19 18:49 Temp 36.7 Pulse 75 Resp 16 B/P (MAP) 125/82 (96) Pulse Ox 97 Blood Pressure Mean: 96 Departure Impression Primary Impression: Minor head injury without loss of consciousness Additional Impressions: Scalp abrasion Sqhsaqjhso-rguvojaib-zpkbnhw (DPT) vaccination administered at current visit Disposition: 01 HOME, SELF-CARE Condition: Stable Departure-Patient Inst. Referrals: ALONZO GRECO (PCP) Primary Care Physician NO,LOCAL PHYSICIAN (Family) Primary Care Physician Patient Instructions: Diphtheria and Tetanus Toxoids, and Acellular Pertussis Vaccine, Minor Head Injury (DC), Skin Abrasions (DC) Add. Discharge Instructions: TYLENOL NEEDED FOR PAIN CLEAN WOUND TWICE A DAY WITH ANTIBACTERIAL SOAP AND WATER, AND APPLY TRIPLE ANTIBIOTIC OINTMENT TO AREA UNTIL HEALED CONTINUE YOUR REGULAR MEDICATIONS PRESCRIBED FOLLOW UP WITH YOUR DR NEEDED, RETURN TO ER IF SYMPTOMS WORSEN All discharge instructions reviewed with patient and/or family. Voiced understanding. ELZA WALLACE DO Dec 05, 2019 19:08
[2019-12-05] MEDS ORDERED: TETANUS,DIPTH,PERTUSS P/F (BOOSTRIX) 0.5 ML VIAL IM ONE (19:15)
[2019-12-05 19:43] VITALS: BP 126/81
== END 2019-12-05 19:44 | disposition home or self-care (01) ==
LOC: EDUNIT# 18:18 → ER 18:19
DX: S09.90XA Unspecified injury of head, initial encounter (principal); S00.01XA Abrasion of scalp, initial encounter; I10 Essential (primary) hypertension; F90.9 Attention-deficit hyperactivity disorder, unspecified type; F31.9 Bipolar disorder, unspecified; F91.3 Oppositional defiant disorder; Z87.19 Personal history of other diseases of the digestive system; Z87.891 Personal history of nicotine dependence; Z23 Encounter for immunization; W22.8XXA Striking against or struck by other objects, initial encounter; Y92.002 Bathroom of unspecified non-institutional (private) residence as the place of occurrence of the external cause
CPT/HCPCS: 90471; 90715; 99284

== ENCOUNTER 2021-12-31 15:49 | Emergency (ER) | payer MEDICAID ==
[~2021-12-31] VITALS: Ht 175 cm; Wt 102.0 kg
[~2021-12-31 15:49] MED LIST changes: +DOCU-239; -DOCU-244; -FOLI1TAB24; +FOLI1TAB33; -LAMO100T; +LAMO100T5; +LISI1TAB44; -LISI1TAB6; -OLAN15TA19; +OLAN15TA35
[2021-12-31] MEDS ORDERED: ASPIRIN 81 MG CHEW (CHILDREN'S ASA) PO ONE (16:00)
--- NOTE | 2021-12-31 16:01 | ED Chest Pain ---
General Stated Complaint: CP Source: patient, EMS Exam Limitations: no limitations History of Present Illness Date Seen by Provider: Dec 31, 2021 Time Seen by Provider: 15:56 Initial Comments 41-year-old male with past medical history of hypertension and developmental disorder coming in via EMS from home due to chest pain. The pain has been constant, going on for greater than 3 hours, center of his chest, does not radiate anywhere, is sharp, nothing seems to make it better or worse. Says the pain is roughly a 4 out of 10. He has not taken anything for the pain as of yet. Denies ever having pain like this before. Denies any history of heart disease, heart attack, or blood clots. No recent surgeries, long travel, lower leg swelling or pain, hemoptysis, shortness of breath, fever, cough, abdominal pain, nausea, vomiting, diarrhea, weakness, numbness, or any other concerns. Allergies and Home Medications Allergies Coded Allergies: No Known Drug Allergies (Unverified , 10/15/19) Patient Home Medication List Home Medication List Reviewed: Yes Docusate Sodium (Dok) Unknown Strength Capsule, Unknown Dose, (Reported) Entered as Reported by: HALEIGH ALEX on 10/15/191750 Folic Acid (Folic Acid) 1 Mg Tablet, (Reported) Entered as Reported by: HALEIGH ALEX on 10/15/191750 Ibuprofen (Ibuprofen) Unknown Strength Tablet, Unknown Dose, (Reported) Entered as Reported by: HALEIGH ALEX on 10/15/191750 Lamotrigine (Lamotrigine) 100 Mg Tablet, (Reported) Entered as Reported by: HALEIGH ALEX on 10/15/191750 Lisinopril/Hydrochlorothiazide (Lisinopril-Hctz 10-12.5 mg Tab) Unknown Strength Tablet, Unknown Dose, (Reported) Entered as Reported by: HALEIGH ALEX on 10/15/191750 Loratadine (Loratadine) Unknown Strength Tablet, Unknown Dose, (Reported) Entered as Reported by: HALEIGH ALEX on 10/15/191750 Naproxen (Naproxen) 500 Mg Tablet, 500 MG PO BID Prescribed by: ELZA WALLACE on 04/04/18 7129 Olanzapine (Olanzapine) Unknown Strength Tablet, Unknown Dose, (Reported) Entered as Reported by: HALEIGH ALEX on 10/15/191750 Oxcarbazepine (Oxcarbazepine) 600 Mg Tablet, (Reported) Entered as Reported by: HALEIGH ALEX on 10/15/191750 Paroxetine HCl (Paroxetine HCl) 20 Mg Tablet, (Reported) Entered as Reported by: HALEIGH ALEX on 10/15/191750 Ranitidine HCl (Ranitidine HCl) 150 Mg Tablet, (Reported) Entered as Reported by: HALEIGH ALEX on 10/15/191750 Review of Systems Review of Systems Constitutional: No chills, No fever EENTM: No Blurred Vision Respiratory: Denies Cough, Denies Shortness of Air Cardiovascular: Chest Pain Gastrointestinal: Denies Abdominal Pain, Denies Diarrhea, Denies Nausea, Denies Vomiting Genitourinary: Denies Burning Musculoskeletal: no symptoms reported Skin: no symptoms reported Psychiatric/Neurological: No Symptoms Reported Endocrine: No Symptoms Reported Hematologic/Lymphatic: No Symptoms Reported All Other Systems Reviewed Negative Unless Noted: Yes Past Mmladmo-Dztlwd-Epblzg Hx Patient Social History Tobacco Use?: No Substance use?: No Immunizations Up To Date Tetanus Booster (TDap): Unknown Seasonal Allergies Seasonal Allergies: Yes Past Medical History Surgeries: Yes (L HAND) Orthopedic Respiratory: No Cardiac: Yes Hypertension Neurological: Yes Developmental Disorder Genitourinary: No Gastrointestinal: Yes Chronic Constipation Musculoskeletal: No Endocrine: No HEENT: No Cancer: No Psychosocial: Yes (MILD IDD;MOOD DISORDER;OCD;OPPOSITIONAL DEFIANT DISORDER;MENTALLY CHALLENGE) ADD/ADHD, ODD, Bipolar, Personality Disorder Integumentary: No Blood Disorders: No Physical Exam Vital Signs Vital Signs - First Documented 12/31/21 16:08 Temp 36.4 Pulse 82 Resp 16 B/P (MAP) 135/91 (106) Pulse Ox 95 Capillary Refill : Height, Weight, BMI Height: 5'9.00" Weight: 210lbs. oz. 95.170069ay; 30.00 BMI Method:Stated General Appearance: No Apparent Distress, WD/WN HEENT: PERRL/EOMI, Normal ENT Inspection, Pharynx Normal Neck: Full Range of Motion, Normal Inspection, Non Tender, Supple Respiratory: Chest Non Tender, Lungs Clear, Normal Breath Sounds, No Accessory Muscle Use, No Respiratory Distress Cardiovascular: Regular Rate, Rhythm, No Edema, Normal Peripheral Pulses Gastrointestinal: Normal Bowel Sounds, Non Tender, Soft; No Distended, No Guarding Extremity: Normal Capillary Refill, Normal Inspection, Normal Range of Motion, Non Tender, No Calf Tenderness, No Pedal Edema Neurologic/Psychiatric: Alert, Oriented x3, No Motor/Sensory Deficits, Normal Mood/Affect Skin: Normal Color, Warm/Dry Lymphatic: No Adenopathy Progress/Results/Core Measures Results/Orders Lab Results Laboratory Tests Test 12/31/21 16:03 Range/Units White Blood Count 10.5 4.3-11.0 10^3/uL Red Blood Count 4.47 4.30-5.52 10^6/uL Hemoglobin 13.7 13.3-17.7 g/dL Hematocrit 41 40-54 % Mean Corpuscular Volume 91 80-99 fL Mean Corpuscular Hemoglobin 31 25-34 pg Mean Corpuscular Hemoglobin Concent 34 32-36 g/dL Red Cell Distribution Width 12.2 10.0-14.5 % Platelet Count 334 130-400 10^3/uL Mean Platelet Volume 8.5 L 9.0-12.2 fL Immature Granulocyte % (Auto) 0 % Neutrophils (%) (Auto) 57 42-75 % Lymphocytes (%) (Auto) 30 12-44 % Monocytes (%) (Auto) 9 0-12 % Eosinophils (%) (Auto) 3 0-10 % Basophils (%) (Auto) 1 0-10 % Neutrophils # (Auto) 6.0 1.8-7.8 X 10^3 Lymphocytes # (Auto) 3.2 1.0-4.0 X 10^3 Monocytes # (Auto) 0.9 0.0-1.0 X 10^3 Eosinophils # (Auto) 0.3 0.0-0.3 10^3/uL Basophils # (Auto) 0.1 0.0-0.1 10^3/uL Immature Granulocyte # (Auto) 0.0 0.0-0.1 10^3/uL Prothrombin Time 12.5 12.2-14.7 SEC INR Comment 0.9 0.8-1.4 Activated Partial Thromboplast Time 20 L 24-35 SEC Sodium Level 132 L 135-145 MMOL/L Potassium Level 3.7 3.6-5.0 MMOL/L Chloride Level 97 L 98-107 MMOL/L Carbon Dioxide Level 20 L 21-32 MMOL/L Anion Gap 15 H 5-14 MMOL/L Blood Urea Nitrogen 12 7-18 MG/DL Creatinine 0.73 0.60-1.30 MG/DL Estimat Glomerular Filtration Rate 117 BUN/Creatinine Ratio 16 Glucose Level 87 70-105 MG/DL Calcium Level 9.1 8.5-10.1 MG/DL Corrected Calcium 9.1 8.5-10.1 MG/DL Total Bilirubin 0.3 0.1-1.0 MG/DL Aspartate Amino Transf (AST/SGOT) 32 5-34 U/L Alanine Aminotransferase (ALT/SGPT) 58 H 0-55 U/L Alkaline Phosphatase 84 40-136 U/L Troponin I < 0.028 <0.028 NG/ML Total Protein 6.9 6.4-8.2 GM/DL Albumin 4.0 3.2-4.5 GM/DL Lipase 52 8-78 U/L My Orders Orders - GILSON SARAVIA MD Cbc With Automated Diff (12/31/21 16:00) Chest 1 View, Ap/Pa Only (12/31/21 16:00) Ekg Tracing (12/31/21 16:00) Comprehensive Metabolic Panel (12/31/21 16:00) Protime With Inr (12/31/21 16:00) Partial Thromboplastin Time (12/31/21 16:00) O2 (12/31/21 16:00) Monitor-Rhythm Ecg Trace Only (12/31/21 16:00) Ed Iv/Invasive Line Start (12/31/21 16:00) Troponin I Garden (12/31/21 16:00) Aspirin Chewable Tablet (Baby Aspirin Ch (12/31/21 16:00) Lipase (12/31/21 16:01) Acetaminophen Tablet (Tylenol Tablet) (12/31/21 16:45) Antacid Suspension (Mylanta Suspension (12/31/21 16:45) Medications Given in ED Current Medications Medications Dose Ordered Sig/Vicki Route Start Time Stop Time Status Last Admin Dose Admin Acetaminophen 1,000 mg ONCE ONCE PO 12/31/21 16:45 12/31/21 16:46 DC 12/31/21 16:53 1,000 MG Al Hydrox/Mg Hydrox/Simethicone 30 ml ONCE ONCE PO 12/31/21 16:45 12/31/21 16:46 DC 12/31/21 16:52 30 ML Aspirin 324 mg ONCE ONCE PO 12/31/21 16:00 12/31/21 16:01 DC 12/31/21 16:18 324 MG Vital Signs/I&O 12/31/21 16:08 Temp 36.4 Pulse 82 Resp 16 B/P (MAP) 135/91 (106) Pulse Ox 95 Progress Progress Note : Progress Note 41-year-old male with above history coming in due to chest pain. ABCs were intact and vitals were stable on presentation. Physical exam reassuring with no focal abnormalities. EKG without STEMI. An IV was placed and basic labs including cardiac biomarkers ordered. Troponin is negative and given constant pain for over 3 hours this should be sufficient. His heart score is 1 for his hypertension and overall lower risk for ACS. He is low risk for a PE and is PERC negative. Chest x-ray clear without any focal abnormalities. Overall I believe he is stable for discharge with outpatient follow-up. He was sent home with strict return precautions. Initial ECG Impression Date: Dec 31, 2021 Initial ECG Impression Time: 16:15 Initial ECG Rate: 84 Initial ECG Rhythm: Normal Sinus Comment Narrow QRS, normal axis, no significant ST changes, T wave flattening in lead III Diagnostic Imaging Diagonstic Imaging: Xray Plain Films/CT/US/NM/MRI: chest Comments [facility], [facility]. [place], [place] NAME: NATHALIA [facility] REC#: [id number] PT STATUS: REG ER : 1980 PHYSICIAN: GILSON SARAVIA MD ADMIT DATE: 12/31/21/ER Signed Date of Exam:12/31/21 CHEST 1 VIEW, AP/PA ONLY INDICATION: Chest pain. COMPARISON: None available. FINDINGS: The lungs appear clear without focal infiltrate or consolidation. There are no findings of an effusion. There is no evidence of a pneumothorax. Heart size and mediastinal contours appear appropriate. Pulmonary vascularity appears within normal limits. There is no acute or suspicious osseous abnormality demonstrated. IMPRESSION: No radiographic evidence of an acute cardiopulmonary process. Dictated by: Dictated on workstation # [id number] Dict: 12/31/21 1611 Trans: [id number] [facility] [id number] Interpreted by: GEETA PICKERING MD Electronically signed by: GEETA PICKERING MD 12/31/211611 Departure Impression Primary Impression: Chest pain Qualified Codes: R07.9 - Chest pain, unspecified Disposition: HOME, SELF-CARE Condition: Stable Departure-Patient Inst. Decision time for Depature: 16:56 Referrals: ALONZO GRECO (PCP) Primary Care Physician NO,LOCAL PHYSICIAN (Family) Primary Care Physician DARIAN TEJEDA MD FACP FAC CCDS Patient Instructions: Chest Pain (DC) Add. Discharge Instructions: You were seen in the emergency department for chest pain. It does not appear like you had a heart attack today, but if you continue to have worsening pain I definitely recommend you follow-up with a paddock judge as soon as possible (Dr. Tejeda's number is in this paperwork to schedule an appointment). If symptoms worsen or you have any concerns then come back to the ER GILSON SARAVIA MD Dec 31, 2021 16:01
[2021-12-31 16:11] LABS: BASOPHILS # (AUTO) 0.1 10^3/uL (0.0-0.1); BASOPHILS % (AUTO) 1 % (0-10); EOSINOPHILS # (AUTO) 0.3 10^3/uL (0.0-0.3); EOSINOPHILS % (AUTO) 3 % (0-10); HEMATOCRIT 41 % (40-54); HEMOGLOBIN 13.7 g/dL (13.3-17.7); LYMPHOCYTES # (AUTO) 3.2 X 10^3 (1.0-4.0); LYMPHOCYTES % (AUTO) 30 % (12-44); MEAN CORPUSCULAR HEMOGLOBIN 31 pg (25-34); MEAN CORPUSCULAR HGB CONC 34 g/dL (32-36); MEAN CORPUSCULAR VOLUME 91 fL (80-99); MEAN PLATELET VOLUME 8.5 fL (9.0-12.2); MONOCYTES # (AUTO) 0.9 X 10^3 (0.0-1.0); MONOCYTES % (AUTO) 9 % (0-12); NEUTROPHILS % (AUTO) 57 % (42-75); PLATELET COUNT 334 10^3/uL (130-400); WHITE BLOOD COUNT 10.5 10^3/uL (4.3-11.0)
--- NOTE | 2021-12-31 16:13 | Diagnostic Imaging Report ---
INDICATION: Chest pain. COMPARISON: None available. FINDINGS: The lungs appear clear without focal infiltrate or consolidation. There are no findings of an effusion. There is no evidence of a pneumothorax. Heart size and mediastinal contours appear appropriate. Pulmonary vascularity appears within normal limits. There is no acute or suspicious osseous abnormality demonstrated. IMPRESSION: No radiographic evidence of an acute cardiopulmonary process. Dictated by: Dictated on workstation # [id number]
[2021-12-31 16:29] LABS: LIPASE 52 U/L (8-78)
[2021-12-31 16:31] LABS: BILIRUBIN,TOTAL 0.3 MG/DL (0.1-1.0); CALCIUM 9.1 MG/DL (8.5-10.1); CREATININE SERUM 0.73 MG/DL (0.60-1.30); POTASSIUM 3.7 MMOL/L (3.6-5.0); TOTAL PROTEIN 6.9 GM/DL (6.4-8.2)
[2021-12-31 16:33] LABS: INR 0.9 (0.8-1.4); PROTHROMBIN TIME PATIENT 12.5 SEC (12.2-14.7)
[2021-12-31] MEDS ORDERED: ANTACID SUSP 30 ML UDC (MYLANTA) PO ONE (16:45)
[2021-12-31] MEDS ORDERED: ACETAMINOPHEN 500 MG TAB (TYLENOL) PO ONE (16:45)
[2021-12-31 17:21] VITALS: BP 130/82
== END 2021-12-31 17:21 | disposition home or self-care (01) ==
LOC: EDUNIT# 15:49 → ER 15:50
DX: R07.9 Chest pain, unspecified (principal); I10 Essential (primary) hypertension; F89 Unspecified disorder of psychological development; K59.09 Other constipation; F90.9 Attention-deficit hyperactivity disorder, unspecified type; F31.9 Bipolar disorder, unspecified; F91.3 Oppositional defiant disorder; F60.9 Personality disorder, unspecified; Z79.899 Other long term (current) drug therapy
CPT/HCPCS: 36415; 71045; 80053; 83690; 84484; 85025; 85610; 85730; 93005; 93041

== ENCOUNTER → 2022-01-26 | Outpatient (CLI) | payer MEDICAID | LOC: CARD 10:00 | PROVIDERS: ATTEND Internal Medicine Cardiovascular Disease | DX: I51.7 Cardiomegaly (principal) | CPT/HCPCS: 93306 ==

== ENCOUNTER → 2022-02-08 | Outpatient (CLI) | payer MEDICAID ==
[~2022-02-08] VITALS: Ht 182 cm; Wt 104.0 kg
[~2022-02-08] MED LIST changes: +CATHETER FLUSH 10 ML SYR IVP PRN; +REGADENOSON 0.4 MG/5 ML SYR (LEXISCAN) IV ONE
[2022-02-08 09:13] LABS: CHOLESTEROL 224 MG/DL (< 200); HDL CHOLESTEROL 34 MG/DL (40-60); TRIGLYCERIDES 208 MG/DL (<150); VLDL CHOLESTEROL 42 MG/DL (5-40)
[2022-02-08 09:20] VITALS: BP 137/81
--- NOTE | 2022-02-08 10:48 | NUCLEAR STRESS TEST ---
REGADENOSON NUCLEAR STRESS Date of procedure: 02/08/2022. Primary care provider: ELADIO Thomas Admitting physician: Homer Israel Jr., MD. INDICATION: Abnormal electrocardiogram. BASELINE ELECTROCARDIOGRAM: Sinus rhythm with nonspecific intraventricular conduction delay. STRESS TEST PROCEDURE: This was initially intended to be a treadmill nuclear stress test and although the patient got into stage III of the Curly protocol, he could not attain his target heart rate and this was changed over to a regadenoson nuclear stress test. The patient was administered 0.4 mg of intravenous Regadenoson. The resting heart rate was 90 bpm and the peak heart rate was 113 bpm. The resting blood pressure was 134/59 mmHg and the minimum b lood pressure was 134/59 mmHg. This represents a normal heart rate and a blunted blood pressure response to Regadenoson. The test was stopped due to the protocol. There was no chest discomfort during the test. There were no arrhythmias during the test. There were no significant stress induced electrocardiogram changes. NUCLEAR PROCEDURE: The patient was administered 10.4 mCi of intravenous technetium 99m Tetrofosmin at rest for the rest images. The patient was subsequently administered 30.8 mCi of intravenous technetium 99m Tetrofosmin at peak stress for the stress images. Following an appropriate wait after each injection, imaging was obtained. The images were subsequently processed and reformatted in the usual views. Gated imaging was obtained. The image quality was adequate with a mild degree of gastrointestinal attenuation artifact. CT attenuation correction was used as a adjunct to standard imaging. Both the corrected and uncorrected images were reviewed for interpretation. NUCLEAR RESULTS: There was a small, mild intensity, reversible apical defect with a small amount of inducible ischemia with a summed stress score of 3 and a summed difference score of 3. There was normal left ventricular chamber size with an end-diastolic volume of 73 mL and an end-systolic volume of 20 mL. There was no evidence of transient ischemic dilatation. The TID ratio was 1.07. There was normal wall motion in all segments with a calculated ejection fraction of 72%. IMPRESSION: 1. Normal heart rate and a blunted blood pressure response to regadenoson. 2. There was no chest discomfort, arrhythmias, or electrocardiogram changes during the test. 3. There was a small, mild intensity, reversible apical defect with a small amount of inducible ischemia with a summed stress score of 3 and a summed difference score of 3. 4. There was normal wall motion in all segments with a calculated ejection fraction of 72%. 5. This is an abnormal result although represents an overall low risk for possible future coronary ischemic events. Certain portions of this document may have been dictated utilizing voice recognition technology. Inherent to this technology, typographical and grammatical errors may exist. As much as I am diligent to identify and correct these mistakes, some errors may remain in the document. HOMER ISRAEL JR, MD Feb 08, 2022 10:47
== END ==
LOC: CARD 08:30
PROVIDERS: ATTEND Internal Medicine Cardiovascular Disease
DX: R94.31 Abnormal electrocardiogram [ECG] [EKG] (principal); R07.9 Chest pain, unspecified; I10 Essential (primary) hypertension; R62.50 Unspecified lack of expected normal physiological development in childhood; E66.9 Obesity, unspecified
CPT/HCPCS: 78452; 80061; 93017; A9502; 36415

== ENCOUNTER → 2022-12-27 | Outpatient (CLI) | payer MEDICAID ==
[~2022-12-27] MED LIST changes: -CATHETER FLUSH 10 ML SYR IVP PRN; -REGADENOSON 0.4 MG/5 ML SYR (LEXISCAN) IV ONE
[2022-12-27 09:09] LABS: BILIRUBIN,URINE NEGATIVE (NEGATIVE); CLARITY,URINE CLEAR; COLOR,URINE DARK YELLOW; GLUCOSE, URINE (UA) NEGATIVE (NEGATIVE); KETONES,URINE NEGATIVE (NEGATIVE); LEUKOCYTE ESTERASE ,URINE NEGATIVE (NEGATIVE); NITRITE,URINE NEGATIVE (NEGATIVE); PROTEIN,URINE NEGATIVE (NEGATIVE)
[2022-12-27 09:36] LABS: BACTERIA,URINE TRACE /HPF; SQUAMOUS EPITHELIAL CELL,UR 0-2 /HPF
== END ==
LOC: LAB 08:58
PROVIDERS: ATTEND Physician Assistant
DX: Z01.89 Encounter for other specified special examinations (principal)
CPT/HCPCS: 81000